=== PATIENT | female | born 1945 | race Caucasian/White ===

== ENCOUNTER → 2016-12-07 | Outpatient (CLI) | payer OTHER ==
[~2016-12-07] MED LIST: AMLO-114 PO; ASPCH81X PO; ATEN100T PO; ATEN25TA PO; FURO-85 PO; LIVALO PO; LORA-741 PO; LXPUNK PO; NRN300 PO; NTRGSL/4 UT; OXYC1TAB3 PO; PANT40TA PO; PLV75 PO; ROPI1TAB PO; ULT/50 PO
[2016-12-07 18:07] LABS: BASO % 0.5 %; BASO ABS # 0.03 K/uL (0-0.2); COMPLETE YES; EOS % 5.2 %; HEMATOCRIT 37.3 % (37-47); IG% 0.3 %; LYMPH % 21.6 %; LYMPH ABS # 1.32 K/uL (1.2-3.4); MEAN CELL VOLUME 86.3 fL (80-100); MEAN CORPUSCULAR HEMOGLOBIN 30.1 pg (25-34); MEAN CORPUSCULAR HGB CONC 34.9 g/dl (32-36); MEAN PLATELET VOLUME 11.1 fL (7.4-10.4); MONO % 9.8 %; NEUT % 62.6 %; PLATELET COUNT 170 K/uL (130-400); RED BLOOD COUNT 4.32 M/uL (4.2-5.4)
== END | disposition home or self-care (01) ==
LOC: C.LABMFLN 11:24
PROVIDERS: ATTEND Family Medicine
DX: D50.0 Iron deficiency anemia secondary to blood loss (chronic) (principal)

== ENCOUNTER 2017-01-05 07:44 | Emergency (ER) | payer OTHER ==
[~2017-01-05] VITALS: Ht 157.5 cm; Wt 77.0 kg
[~2017-01-05 07:44] MED LIST changes: -AMLO-114 PO; -ATEN25TA PO; -OXYC1TAB3 PO
[2017-01-05 07:49] VITALS: TEMP 36.9; Ht 157.5 cm; Wt 77.0 kg
[2017-01-05] MEDS ORDERED: ATEN25TA PO (08:03)
[2017-01-05] MEDS ORDERED: AMLO-114 PO (08:22)
[2017-01-05 09:01] LABS: PARTIAL THROMBOPLASTIN RATIO 1.1
--- NOTE | 2017-01-05 09:20 | DIAGNOSTIC IMAGING REPORT ---
Venous Doppler left leg LEFT VENOUS DOPP LOWER EXT UNILAT CLINICAL HISTORY: posterior knee pain pain TECHNIQUE: Venous Doppler COMPARISON STUDY: None FINDINGS: No evidence for deep venous thrombosis. Several small popliteal cyst measuring up to 2.5 cm IMPRESSION: 1. Study is negative for deep venous thrombosis. 2. Several small posterior popliteal cyst. Electronically signed by: Agustin Pleitez M.D. 01/05/2017 9:19 AM Dictated Date/Time: 01/05/2017 9:16 AM
--- NOTE | 2017-01-05 09:58 | EMERGENCY ROOM VISIT NOTE ---
History First contact with patient: 07:56 Chief Complaint: KNEEPAIN Stated Complaint: KNEE PAIN History of Present Illness The patient is a 71 year old female who presents to the Emergency Room with complaints of left knee pain for several months but got worse yesterday. The patient states that she felt something "pop" yesterday and then got severe pain in the back of her knee and on the medial aspect. The patient states she is able to ambulate but it is painful. The patient states that she has a history of multiple popliteal cysts in that knee. The patient is on Plavix since she had a quadruple bypass several months ago. The patient denies any calf pain or any chest pain or shortness of breath. Review of Systems 10 system review was performed and was negative unless stated otherwise history of present illness. Past Medical/Surgical History He had bypass, heart disease, hypertension, depression, anxiety, popliteal cyst , thyroid nodule, benign breast nodule, bowel resection Social History Smoking Status: Never Smoker Alcohol Use: occasionally Marital Status: Housing Status: lives with family Occupation Status: retired Current/Historical Medications Scheduled Amlodipine (Norvasc), 10 MG PO QAM Aspirin (Aspirin Chewable), 81 MG PO HS Atenolol (Tenormin), 25 MG PO QAM Clopidogrel Bisulfate (Clopidogrel), 1 TAB PO DAILY Escitalopram (Lexapro Unknown Dose), 20 MG PO HS Gabapentin (Gabapentin), 300 MG PO BID Lorazepam (Ativan), 1.5 TABLETS PO HS PRN Nitroglycerin (Nitrostat), 0.4 MG UT PRN Pantoprazole Sodium (Protonix), 40 MG PO QAM Ropinirole (Requip), 1 MG PO HS Tramadol Hcl (Ultram), 50 MG PO BID [Livalo], 2 MG PO HS Scheduled PRN Furosemide (Lasix), 1 TAB PO DAILY PRN for fluid Allergies Coded Allergies: Crab (Verified Allergy, Unknown, numbness of tongue, 01/05/17) Ranolazine (Verified Allergy, Unknown, DIAPORETIC WEAKNESS FAINTING, ) Isosorbide (Verified Adverse Reaction, Intermediate, Severe headache, ) SEVERE TRACEY Nitroglycerin (Verified Adverse Reaction, Mild, HEADACHE, 01/05/17) Rosuvastatin (Verified Adverse Reaction, Mild, MUSCLE PAIN, 01/05/17) MUSCLE PAIN Simvastatin (Verified Adverse Reaction, Mild, MUSCLE CRAMPING, 01/05/17) Physical Exam Vital Signs Date Time Temp Pulse Resp B/P Pulse Ox O2 Delivery O2 Flow Rate FiO2 01/05/17 09:19 55 16 138/74 95 Room Air 01/05/17 07:49 36.9 59 18 127/72 97 Room Air Physical Exam GENERAL: 71-year-old white female appears in no acute distress. MENTAL Status: Alert and oriented 3 NECK: Supple, no lymphadenopathy noted. No carotid bruits noted. LUNGS: Clear auscultation without wheezes rales or rhonchi. CARDIAC: Regular rate and rhythm without murmur. Pulses is full and equal throughout. LEFT KNEE: No gross bony deformity noted. No erythema or edema noted. The patient has tenderness palpation over the medial joint space and in the popliteal region. Full range of motion of the knee. No ligament instability noted. Medical Decision & Procedures ER Provider Diagnostic Interpretation: Venous Doppler left leg LEFT VENOUS DOPP LOWER EXT UNILAT CLINICAL HISTORY: posterior knee pain pain TECHNIQUE: Venous Doppler COMPARISON STUDY: None FINDINGS: No evidence for deep venous thrombosis. Several small popliteal cyst measuring up to 2.5 cm IMPRESSION: 1. Study is negative for deep venous thrombosis. 2. Several small posterior popliteal cyst. Electronically signed by: Agustin Pleitez M.D. 01/05/2017 9:19 AM Dictated Date/Time: 01/05/2017 9:16 AM Laboratory Results Test 01/05/17 08:36 Prothrombin Time 11.0 SECONDS (9.0-12.0) Prothromb Time International Ratio 1.0 (0.9-1.1) Activated Partial Thromboplast Time 27.3 SECONDS (21.0-31.0) Partial Thromboplastin Ratio 1.1 ED Course The patient was evaluated. The patient was offered pain medication but declined. Coags were ordered and were unremarkable. He did stop her was ordered and interpreted as above without any evidence of DVT but there were multiple popliteal cysts largest measuring 2.5 cm. The patient was informed of the findings. The patient was independently evaluated by Dr. Cantrell who agrees with treatment plan. The patient states she already has an appointment with [facility] next Monday but she states that the pain was increasing therefore she decided to come to the emergency room. The patient was informed that we normally do not do MRIs to the emergency room. We also do not do injections into the knee that she would have to see orthopedics. The patient verbalized understanding. I had the case investigator speak with [facility] and they moved up her appointment with to 845 on Monday at the [place] office. The patient was discharged home in stable condition. Medical Decision Differential diagnosis include DVT, superficial phlebitis, meniscal tear, ligament strain, popliteal cyst Impression Primary Impression: Knee pain Additional Impression: Popliteal cyst Departure Information Dispostion Home / Self-Care Condition GOOD Referrals Cony De La Torre M.D. (PCP) Carlos Fremean M.D. Forms HOME CARE DOCUMENTATION FORM, IMPORTANT VISIT INFORMATION Patient Instructions [employer] Additional Instructions Take OxyIR as needed for pain. Do not drive while taking the OxyIR. Recommend getting an [id number] knee brace that has felt processes can adjust the size for the left knee. Appointment with on Monday at 8:45 AM at the [place] office. Further evaluation and treatment per orthopedics. Problem Qualifiers
[2017-01-05] MEDS ORDERED: OXYC1TAB3 PO (09:59)
[2017-01-05 10:09] VITALS: BP 134/76; PULSE 52; O2SAT 98
--- NOTE | 2017-01-05 15:23 | EMERGENCY ROOM VISIT NOTE ---
ED Visit Note First contact with patient: 07:56 I have personally evaluated this patient examined her and reviewed the pertinent labs and data. I have discussed the case with Radha Pleitez, the physician finance assistant and agree with the plan. Please refer to the PA note This patient felt a pop in her left knee. she has posterior as well as medial pain. On exam ,she has no redness or warmth and fas full range of motion ultrasound shows no evidence of DVT. She is use knee support and pain medication. we have got her in with orthopedics and they will see her for treatment and evaluation. She should be careful getting up and down
== END 2017-01-05 10:10 | disposition home or self-care (01) ==
LOC: C.EDB 07:45
DX: M71.22 Synovial cyst of popliteal space [Baker], left knee (principal); I51.9 Heart disease, unspecified; M25.562 Pain in left knee; I10 Essential (primary) hypertension; Z79.82 Long term (current) use of aspirin

== ENCOUNTER → 2017-01-30 | Outpatient (CLI) | payer OTHER ==
[~2017-01-30] MED LIST changes: +AMLO-114 PO; -ATEN100T PO; +ATEN25TA PO; +OXYC1TAB3 PO
[2017-01-30 17:49] LABS: BASO % 0.5 %; BASO ABS # 0.04 K/uL (0-0.2); COMPLETE YES; EOS % 4.3 %; HEMATOCRIT 43.3 % (37-47); IG% 0.6 %; LYMPH % 27.4 %; LYMPH ABS # 2.21 K/uL (1.2-3.4); MEAN CELL VOLUME 84.6 fL (80-100); MEAN CORPUSCULAR HEMOGLOBIN 29.3 pg (25-34); MEAN CORPUSCULAR HGB CONC 34.6 g/dl (32-36); MEAN PLATELET VOLUME 10.7 fL (7.4-10.4); MONO % 9.4 %; NEUT % 57.8 %; PLATELET COUNT 247 K/uL (130-400); RED BLOOD COUNT 5.12 M/uL (4.2-5.4); WHITE BLOOD COUNT 8.06 K/uL (4.8-10.8)
[2017-01-30 18:02] LABS: BLOOD UREA NITROGEN 14 mg/dl (7-18); BUN/CREATININE RATIO 15.4 (10-20); CALCIUM 9.5 mg/dl (8.5-10.1); CARBON DIOXIDE 29 mmol/L (21-32); CHLORIDE 106 mmol/L (98-107); CREATININE 0.94 mg/dl (0.60-1.20); GLUCOSE 105 mg/dl (70-99); POTASSIUM 3.7 mmol/L (3.5-5.1); SODIUM 142 mmol/L (136-145)
[2017-01-30 18:13] LABS: PHOSPHORUS 3.8 mg/dl (2.5-4.9)
== END | disposition home or self-care (01) ==
LOC: C.LABMFLN 10:11
PROVIDERS: ATTEND Family Medicine
DX: F41.9 Anxiety disorder, unspecified (principal); F32.9 Major depressive disorder, single episode, unspecified

== ENCOUNTER → 2017-04-17 | Outpatient (CLI) | payer OTHER ==
--- NOTE | 2017-04-17 14:55 | MAMMOGRAPHY REPORT ---
UNILATERAL RIGHT DIGITAL DIAGNOSTIC MAMMOGRAM TOMOSYNTHESIS WITH CAD AND TARGETED RIGHT ULTRASOUND: CLINICAL HISTORY: 72-year-old woman with a history of 2 prior benign ultrasound guided core biopsies in the 12:00 right breast. She presents for follow-up of a probable, located cyst with thin internal septations also seen on prior diagnostic ultrasound. Both biopsies yielded benign pathology results . Patient also has a history of recent open heart surgery 6 months ago. TECHNIQUE: Right breast tomosynthesis in addition to standard 2D mammography was performed. Current jhony raymond was also evaluated with a Computer Aided Detection (CAD) system. COMPARISON: Comparison is made to exams dated: 10/11/2016 mammogram, 10/04/2016 ultrasound, 10/04/2016 mammogram, 09/29/2016 mammogram - [facility], 09/17/2014 mammogram, and 04/04/2013 ma mmogram - [facility]. BREAST COMPOSITION: There are scattered areas of fibroglandular density in the right breast. FINDINGS: There are 2 stable metallic biopsy markers in the 12:00 to 12:30 anterior right breast, den oting the site of prior benign ultrasound-guided core biopsy. There are a few benign-appearing punct ate microcalcifications in the right breast. No new suspicious mass, architectural distortion or clu ster of microcalcifications is seen. Targeted ultrasound was performed in the 12:00 periareolar right breast to reevaluate the probable co mplicated cyst as seen on prior diagnostic ultrasound. In the 12:00 periareolar right breast, there is a lobulated anechoic cystic appearing mass with thin internal nonvascular septations measuring 3.9 x 3.2 x 3.8 mm. This has decreased in size comparing to the prior diagnostic ultrasound at which ti me it measured 0.2 x 5.8 x 4.9 mm. Given the interval decrease this confirms benignity and no furthe r close follow-up is needed at this time. IMPRESSION: ACR BI-RADS CATEGORY 2: BENIGN, TARGETED ULTRASOUND ACR BI-RADS CATEGORY 2: BENIGN A probable, located cyst in the 12:00 periareolar right breast which was not previously biopsied has decreased in size, confirming benignity. There is no mammographic or targeted sonographic evidence o f malignancy in the right breast. Return to annual mammogram screening schedule is recommended (2016). The patient has been verbally notified of the results. Approximately 10% of breast cancers are not detected with mammography. A negative mammographic report should not delay biopsy if a clinically suggestive mass is present. Kasie Hayward M.D. ay/:04/17/2017 10:48:28 Factory Hand: Rafaela MULLER)(Tim), [facility] letter sent: Normal 1/2 BI-RADS Code: ACR BI-RADS Category 2: Benign Ultrasound BI-RADS: ACR BI-RADS Category 2: Benign
== END | disposition home or self-care (01) ==
LOC: C.MAMM 09:58
PROVIDERS: ATTEND Family Medicine
DX: Z12.31 Encounter for screening mammogram for malignant neoplasm of breast (principal); N64.89 Other specified disorders of breast

== ENCOUNTER → 2017-05-09 | Outpatient (CLI) | payer OTHER | END | disposition home or self-care (01) | LOC: C.LABMFLN 11:49 | PROVIDERS: ATTEND Family Medicine | DX: M79.606 Pain in leg, unspecified (principal) ==

== ENCOUNTER → 2017-05-10 | Outpatient (CLI) | payer OTHER ==
--- NOTE | 2017-05-10 11:29 | DIAGNOSTIC IMAGING REPORT ---
BILATERAL LOWER EXTREMITY VENOUS DOPPLER HISTORY: Pain. Edema. ELEVATED D DIMER, PAIN IN LOWER EXTREMITY, R/O DVT COMPARISON STUDY: None. FINDINGS: There is normal compressibility, flow, and augmentation within the bilateral lower extremity deep venous systems. Bilateral popliteal cysts are present IMPRESSION: No DVT within the right or left lower extremity. Bilateral popliteal cysts measuring approximately 4 cm respectively Electronically signed by: Agustin Pleitez M.D. 05/10/2017 11:27 AM Dictated Date/Time: 05/10/2017 11:26 AM
== END | disposition home or self-care (01) ==
LOC: C.ULTR 10:47
PROVIDERS: ATTEND Family Medicine
DX: M79.606 Pain in leg, unspecified (principal); R79.89 Other specified abnormal findings of blood chemistry; M71.21 Synovial cyst of popliteal space [Baker], right knee; M71.22 Synovial cyst of popliteal space [Baker], left knee

== ENCOUNTER → 2018-02-06 | Outpatient (CLI) | payer OTHER ==
[~2018-02-06] MED LIST changes: -OXYC1TAB3 PO
--- NOTE | 2018-02-07 09:48 | PULMONARY FUNCTION TEST ---
CLINICAL DATA: A 72-year-old female with a height of 61 inches and weight of [address] De La Torre for evaluation of COPD. Spirometry pre- and post-bronchodilator, lung volumes, and DLCO were performed. FINDINGS: Pre-bronchodilator spirometry is within normal limits. FVC was 86% of predicted. FEV1 was 85% of predicted. [id number] was 82% of predicted. There was no significant change after inhaled bronchodilator. FEV1 improved 3%. [id number] are improved 9%. Lung volumes are within normal limits with the exception of a reduction in expiratory reserve volume secondary to the patient's weight. DLCO was mildly reduced at 68% of predicted. IMPRESSION: 1. Normal baseline spirometry with no improvement after inhaled bronchodilator. 2. Reduction in expiratory reserve volume due to obesity. 3. Mild reduction in DLCO to 68% of predicted, which could be secondary to mild chronic obstructive pulmonary disease. MTDD
== END | disposition home or self-care (01) ==
LOC: C.RC 11:28
PROVIDERS: ATTEND Family Medicine
DX: J43.9 Emphysema, unspecified (principal)

== ENCOUNTER → 2018-02-13 | Outpatient (CLI) | payer OTHER ==
[2018-02-13 14:36] LABS: BASO % 0.6 %; BASO ABS # 0.03 K/uL (0-0.2); EOS % 5.4 %; EOS ABS # 0.26 K/uL (0-0.5); HEMATOCRIT 37.4 % (37-47); HEMOGLOBIN 12.6 g/dL (12.0-16.0); IG# 0.01 K/uL (0.00-0.02); LYMPH % 20.2 %; LYMPH ABS # 0.98 K/uL (1.2-3.4); MEAN CELL VOLUME 88.6 fL (80-100); MEAN CORPUSCULAR HEMOGLOBIN 29.9 pg (25-34); MEAN CORPUSCULAR HGB CONC 33.7 g/dl (32-36); MEAN PLATELET VOLUME 11.5 fL (7.4-10.4); MONO % 9.3 %; MONO ABS # 0.45 K/uL (0.11-0.59); NEUT % 64.3 %; NEUT ABS # 3.12 K/uL (1.4-6.5); PLATELET COUNT 173 K/uL (130-400); RED CELL DISTRIBUTION WIDTH SD 45.2 fL (36.4-46.3); WHITE BLOOD COUNT 4.85 K/uL (4.8-10.8)
[2018-02-13 15:07] LABS: ALBUMIN 3.9 gm/dl (3.4-5.0); ALT/SGPT 20 U/L (12-78); AST/SGOT 16 U/L (15-37); BLOOD UREA NITROGEN 11 mg/dl (7-18); CALCIUM 8.9 mg/dl (8.5-10.1); CARBON DIOXIDE 26 mmol/L (21-32); CREATININE 0.78 mg/dl (0.60-1.20); GLUCOSE 102 mg/dl (70-99); SODIUM 140 mmol/L (136-145)
[2018-02-13 15:20] LABS: ALKALINE PHOSPHATASE 91 U/L (45-117); TOTAL PROTEIN 6.8 gm/dl (6.4-8.2)
== END | disposition home or self-care (01) ==
LOC: C.LAB1850 12:06
PROVIDERS: ATTEND Internal Medicine Pulmonary Disease
DX: J44.1 Chronic obstructive pulmonary disease with (acute) exacerbation (principal); R05 Cough

== ENCOUNTER → 2018-02-26 | Outpatient (CLI) | payer OTHER ==
--- NOTE | 2018-02-26 13:16 | DIAGNOSTIC IMAGING REPORT ---
PET/CT SKULL-THIGH CLINICAL HISTORY: 72 years-old Female presenting with PULMONARY NODULE. TECHNIQUE: PET/CT was performed from the skull base through the proximal thighs following the intravenous administration of 10.127 mCi of F18-FDG. Blood glucose level 102 mg/dL. The injection was performed at 10:15 AM and imaging began at 11:[address] was performed for attenuation correction purposes and anatomic localization. COMPARISON: None. CT DOSE (mGy.cm): The estimated cumulative dose is 1156.30. FINDINGS: Head and neck: No FDG-avid mass in the visualized portion of the head or neck. No FDG avid or enlarged lymph nodes in the neck. Chest: Normal thyroid and thoracic inlet. No FDG avid axillary, supraclavicular, or mediastinal lymphadenopathy. Evaluation of the minesh on anatomic imaging limited without intravenous contrast. Atherosclerosis of the aorta. Multichamber enlargement of the heart. Coronary artery calcification. Coronary stents may be present. Median sternotomy wires noted. No pericardial or pleural effusion. Minimal dependent changes likely atelectasis. Mosaic attenuation suggest small airways disease. No FDG avid focal nodule or infiltrate. Airways patent. Abdomen and pelvis: Postsurgical changes of sigmoidectomy with a colocolonic anastomosis at the upper rectum. Surgical clips noted in the pelvis. Normal physiologic distribution of radiotracer in the gastrointestinal and genitourinary tracts. No FDG avid lymphadenopathy or mass lesion. Musculoskeletal: No FDG-avid or destructive osseous lesion. IMPRESSION: 1. No FDG avid pulmonary nodule. No PET/CT evidence of malignancy. 2. Cardiomegaly. 3. Postsurgical changes of sigmoidectomy with colocolonic anastomosis. Electronically signed by: Carlos Hernandez M.D. 02/26/2018 1:15 PM Dictated Date/Time: 02/26/2018 1:04 PM
== END | disposition home or self-care (01) ==
LOC: C.PET 09:23
PROVIDERS: ATTEND Internal Medicine Pulmonary Disease
DX: J44.1 Chronic obstructive pulmonary disease with (acute) exacerbation (principal); R91.1 Solitary pulmonary nodule; I51.7 Cardiomegaly

== ENCOUNTER 2023-04-11 12:34 | Inpatient (IN) ==
[2023-04-11] MEDS ORDERED: SODIUM CHLORIDE 0.9% 1000ML 1,000 ML IV ONE (12:55)
--- NOTE | 2023-04-11 13:21 | XRay Report ---
XR chest 1V portable CLINICAL HISTORY: Syncope. COMPARISON STUDY: Chest radiograph January 06, 2020. FINDINGS: Cardiomegaly is unchanged. There is no pneumothorax or pleural effusion. There are median s ternotomy wires and mediastinal surgical clips. No consolidation is present. There is no evidence for pulmonary edema. IMPRESSION: No acute cardiopulmonary findings. Cardiomegaly. ACT 112: Negative or not required by law. Electronically signed by: Zechariah Ngo M.D. 04/11/2023 1:19 PM
[2023-04-11 13:23] LABS: Basophils # (auto) 0.04 K/uL (0-0.2); Basophils % (auto) 0.9 %; Eosinophils # (auto) 0.24 K/uL (0-0.50); Eosinophils % (auto) 5.2 %; Hematocrit (blood only) 43.3 % (37.0-47.0); Hemoglobin 14.8 g/dl (12.0-16.0); Immature Granulocytes # (auto) 0.01 K/uL (0.01-0.20); Immature Granulocytes % (auto) 0.2 %; Lymphocytes # (auto) 1.06 K/uL (1.2-3.4); Lymphocytes % (auto) 22.8 %; Mean Corpuscular Hemoglobin 29.7 pg (25.0-34.0); Mean Corpuscular Hgb Conc 34.2 g/dL (32.0-36.0); Mean Corpuscular Volume 86.9 fL (80.0-100.0); Mean Platelet Volume 11.8 fL (9.4-12.4); Monocytes # (auto) 0.46 K/uL (0.11-0.59); Monocytes % (auto) 9.9 %; Neutrophils # (auto) 2.84 K/uL (1.40-6.50); Platelet Count 174 K/uL (130-400); RDW Coefficient of Variation 13.3 % (11.5-14.5); RDW Standard Deviation 42.5 fL (36.4-46.3); Red Blood Count 4.98 M/uL (4.20-5.40); White Blood Count 4.65 K/ul (4.8-10.8)
[2023-04-11 13:41] LABS: Albumin Globulin Ratio 1.5 (0.9-2); Albumin Level 4.3 gm/dl (3.4-5.0); BUN Creatinine Ratio 16.3 (10-20); Bilirubin,Total 0.6 mg/dl (0.2-1.0); Calcium 9.8 mg/dl (8.6-10.3); Est GFR (Non-African American) 71.6 ml/min; Globulin 2.8 gm/dl (2.5-4.0); Magnesium 1.8 mg/dl (1.7-2.4); Potassium 4.1 mmol/L (3.5-5.1); Total Protein 7.1 gm/dl (6.0-8.3)
[2023-04-11] MEDS ORDERED: MAGNESIUM SULFATE / D5W 1 GM/100 ML BAG IV STA (13:45)
[2023-04-11 13:46] LABS: Troponin I High Sensitivity 23.8 pg/ml (0-14)
[2023-04-11 15:13] LABS: Lyme Ab IgG w/WB Rflx Negative (Negative)
[2023-04-11 15:14] LABS: Lyme Ab IgM w/WB Rflx Negative (Negative)
--- NOTE | 2023-04-11 15:58 | Emergency Department Note ---
Impression & Plan Near syncope, Complete heart block, transient, Sinus node dysfunction, Hypertension, Sinus bradycardia ED Provider Note NAME: LOLIS CARTER AGE: 78 SEX: F ARRIVES VIA: Walk-In INFORMANT: Patient ED PROVIDER(S): Alexandre Goodrich MD CHIEF COMPLAINT: Near fainting PLAN: Disposition: Admit MEDICAL DECISION MAKING: The patient is a pleasant 78-year-old woman with a complicated past medical history of CAD with her report of 13 stents, history of CABG, atrial fi brillation status post cardioversion and then ablation this past fall on who presents to the emergency department via walk-in accompanied by her for evaluation of symptoms of intermittent palpitations and episodes of dizziness where she feels she is about to faint which lasts seconds and then resolves completely over the past several weeks where she was seen at [facility] emergency department on 03/[address] scan of her head and unremarkable lab work and was diagnosed with suspected meclizine. She reports she has been doing well for the most part until today when she had repeat episodes. She does report having intermittent palpitations which she reports is not atypical for her over the past couple weeks but she did follow-up with her manager agency [employer] and had a heart monitor placed which she has since mailed back yesterday and does not know of the results yet. She denies chest pain or shortness of breath with her episodes. Otherwise she denies any cough, congestion, GI or symptoms. She did take her Atenolol this morning. On arrival the patient is anxious appearing but in no acute distress, afebrile with heart rate in the 50s and sinus bradycardia blood pressure 180s/70s and vital signs otherwise stable. Of note when the patient's IV and labs were being obtained nursing did note that the patient had a another "episode" where her heart rate had gone down to the 30s. The patient's telemetry was obtained and it did appear that the patient had transient complete heart block per my review lasting approximately 3 seconds and then returning to a sinus bradycardia. The patient reported feeling "a difference in her chest" in that moment but denied pain. She denied sensation of near fainting as she has had in her recent other episodes. EKG otherwise is without overt acute ischemia. Chest x-ray negative for acute cardiopulmonary process. WBC 4.6k similar to prior, nonspecific. H/H and platelets within normal limits. Chemistry without metabolic acidosis. Magnesium 1.8, low normal. Otherwise, electrolytes without significant abnormality. LFTs unremarkable. High- sensitivity troponin 23.8, nonspecific. Lipase is normal. TSH within normal limits. Lyme screen was negative. COVID-19 RNA, AQUILINO test was negative. Given the patient's transient complete heart block which is suspected to correlate with the patient's symptoms of near syncope she was referred to the hospitalist service for evaluation. Case was discussed with ROSETTA Kaplan hospitalist, who will evaluate the patient for admission. Case was also discussed with Dr. Roxanne HARDIN cardiology on-call. Subsequently, during the patient's observation the patient was noted to have "another episode" but this time with more significant symptoms where she felt near syncope onset for approximately 6 seconds which correlates with review of her telemetry which demonstrates a 5-6-second pause. Admitting team and cardiology updated. Pacer pads were placed on the patient out of caution though the patient remained hemodynamically stable subsequently. Triage Nursing notes reviewed and agree them. Prior/outside medical records reviewed Vital Signs: reviewed Differential diagnosis: Vasovagal event, dehydration, infection, hypoglycemia, electrolyte abnormalities, cardiac sources, intracerebral event, pulmonary embolism, seizure, toxicologic, neurologic, as well as other pathologies. ER treatment provided: See below. Diagnostics interpreted by me: ECG 1254: Sinus bradycardia with sinus arrhythmia, first-degree AV block, 58 bpm, no ectopy, no overt ST elevation or depression, QTc 408, QRS 100, MN 212. ECG 1644: Sinus bradycardia with sinus arrhythmia, first-degree AV block, 58 bpm, no ectopy, no overt ST elevation or depression, QTc 424, QRS 94, MN 212. Cardiac Monitoring: An order for continuous cardiac monitoring was placed and demonstrated sinus bradycardia with first-degree AV block with transient episode of complete heart block lasting 2-3 seconds per my review and an approximate 5-6-second sinus pause. Laboratory studies: See below Imaging studies: See below Consultation(s): ROSETTA Kaplan hospitalist. LASHAWN Ellis Cardiology on-call. HPI: The patient is a pleasant 78-year-old woman with a complicated past medical history of CAD with her report of 13 stents, history of CABG, atrial fibrillation status post cardioversion and then ablation this past fall on Ray who presents to the emergency department via walk-in accompanied by her for evaluation of symptoms of intermittent palpitations and episodes of dizziness where she feels she is about to faint which lasts seconds and then resolves completely over the past several weeks where she was seen at [facility] emergency department on 03/[address] scan of her head and unremarkable lab work and was diagnosed with suspected meclizine. She reports she has been doing well for the most part until today when she had repeat episodes. She does report having intermittent palpitations which she reports is not atypical for her over the past couple weeks but she did follow-up with her manager agency [employer] and had a heart monitor placed which she has since mailed back yesterday and does not know of the results yet. She denies chest pain or shortness of breath with her episodes. Otherwise she denies any cough, congestion, GI or symptoms. She did take her Atenolol this morning. ROS: See above HPI for pertinent positives & negatives. A total of 10 systems reviewed and were otherwise negative. VITALS:See Below PHYSICAL EXAMINATION: GENERAL: Awake, alert, anxious but well-appearing, in no distress HENT: Normocephalic, atraumatic. Oropharynx with dry mucous membranes and otherwise unremarkable. EYES: Normal conjunctiva. Sclera non-icteric. EOMI. No nystamgus. PEARRL. NECK: Supple. No nuchal rigidity. FROM. No JVD. RESPIRATORY: Clear to auscultation. CARDIAC: Bradycardic rate, normal rhythm. Extremities warm and well perfused. Pulses equal. ABDOMEN: Soft, non-distended. No tenderness to palpation. No rebound or guarding. No masses. RECTAL: Deferred. MUSCULOSKELETAL: Chest examination reveals no tenderness. The back is symmetrical on inspection without obvious abnormality. There is no CVA tenderness to palpation. No joint edema. LOWER EXTREMITIES: Calves are equal size bilaterally and non-tender. No edema. No discoloration. NEURO: Normal sensorium. No sensory or motor deficits noted. SKIN: No rash or jaundice noted. ED COURSE: Critical Care: I have personally spent greater than 45 minutes of critical care time in the direct management of this patient. This includes bedside care, interpretation of diagnostic studies, and testing, discussion with consultants, patient, and family members, and other required patient management activities. This 45 minutes is in excess of all separately billable procedures. Alexandre Goodrich MD Past Med/Surg History Medical History Anxiety Chronic obstructive pulmonary disease Coronary artery disease multiple cardiac stents (total of 13/most recent 2014), CABG x4 (2017) Depression Diverticular disease GERD (gastroesophageal reflux disease) Hemoptysis (10/04/22) Hyperlipidemia Hypertension Hypothyroidism Leg cramps Low vitamin B12 level Osteoarthritis of multiple joints Paroxysmal atrial fibrillation Peripheral neuropathy Restless legs syndrome Sinus bradycardia Urinary incontinence Surgical History H/O colonoscopy 07/17/2013 repeat 5yrs H/O foot surgery bunionectomy on right foot/rinaldi's neuroma removal bilaterally H/O partial thyroidectomy History of bowel resection partial History of partial thyroidectomy Hx of CABG 4 VESSEL (10/2016) Hx of cardiac catheterization Hx of tonsillectomy Nausea and vomiting after administration of anesthetic agent S/P ablation of atrial fibrillation 09/2022 Dr Braxton Hwang S/P CABG (coronary artery bypass graft) S/P carpal tunnel release S/P knee replacement Right TKA: 10/10/18 at [facility] Family History Mother Osteoporosis Heart disease Hypertension Other No family history of adverse response to anesthesia Denies family history of Ovarian cancer Prostate cancer Myocardial infarction Breast cancer Colorectal cancer Social History Smoking Status: Never smoker Second Hand Exposure: Yes (Mother smoked. ); Do You Dip or Chew Tobacco: No; Hx Alcohol Use: Yes Alcohol type: beer and wine Alcohol Intake Frequency: 2-4 x/Month Hx Substance Use: No Preferred Language: Polish Communication Ability: Effective Visual Impairment: Limited Hearing Ability: Normal Park Aide Required: No Beliefs That Will Affect Care: None marital status: Current Living Situation: Spouse current occupational status: retired How many Children do You have: 2 Other Information That Helps Us Care for You: No Feels Safe at Home: Yes Safety Concerns: Feels Safe At This Time Childhood Exposure to Second-Hand Smoke: Yes Diet: regular caffeine: Yes (coffee) during the past year weight has: remained stable Dental Care, Regularly: Yes Physical Activity Frequency: 3-4 Times per Week Physical Activity Frequency Comment: Works in [employer] Seatbelt Use: always Sunscreen Use: No Do you think of yourself as: straight/heterosexual Gender Identity: Female Assistive Devices: Denture - Upper and Glasses Allergies Allergies Allergy/AdvReac Type Severity Reaction Status Date / Time crab Allergy Intermediate numbness Verified 04/11/23 16:51 of tongue metoprolol Allergy Unknown swelling Verified 04/11/23 17:58 sulfamethoxazole Allergy Unknown yeast Verified 04/11/23 16:51 [From Bactrim] infection trimethoprim [From Bactrim] Allergy Unknown yeast Verified 04/11/23 17:58 infection and Nausea and Vomitting shellfish derived Allergy numbness Verified 04/11/23 17:58 of tongue/edema of face/lips/tongue isosorbide AdvReac Intermediate Severe Verified 04/11/23 16:51 headache nitroglycerin AdvReac Mild HEADACHE Verified 04/11/23 16:51 rosuvastatin AdvReac Mild MUSCLE PAIN Verified 04/11/23 16:51 simvastatin AdvReac Mild MUSCLE Verified 04/11/23 16:51 CRAMPING pitavastatin [From Livalo] AdvReac Unknown Unknown Verified 04/11/23 16:51 prednisone AdvReac Unknown Tachycardia Verified 04/11/23 17:58 Home Meds Home Medications Medication Instructions Recorded Confirmed apixaban 5 mg tablet (Eliquis) 5 mg PO BID 10/10/22 04/11/23 escitalopram oxalate 10 mg tablet 5 mg PO QAM 04/05/23 04/11/23 (Lexapro) lorazepam 1 mg tablet 1 mg PO HS anxiety 04/05/23 04/11/23 cyanocobalamin (vitamin B-12) 1,000 mcg PO QAM 04/11/23 04/11/23 1,000 mcg tablet fluticasone 250 mcg-salmeterol 50 1 inh inhalation BID PRN Shortness 04/11/23 04/11/23 mcg/dose blistr powdr for Of Breath inhalation (Advair Diskus) meclizine 25 mg tablet 25 mg PO Q8 04/11/23 04/11/23 pantoprazole 40 mg tablet,delayed 40 mg PO QAM heartburn 04/11/23 04/11/23 release sacubitril 49 mg-valsartan 51 mg 1 tab PO BID 04/11/23 04/11/23 tablet (Entresto) Previous Rx's Medication Instructions Recorded albuterol sulfate 90 mcg/actuation 2 inh inhalation .COMPLEX PRN 01/17/20 aerosol inhaler cough/wheeze #18 grams nitroglycerin 0.4 mg sublingual 0.4 mg sublingual Q5M PRN Chest 07/18/21 tablet Pain #25 tabs amlodipine 10 mg tablet 10 mg PO PM #90 tabs 11/30/22 nystatin 100,000 unit/gram topical 1 applic topical BID #60 grams 11/30/22 powder nystatin 100,000 unit/gram topical 1 applic topical BID #60 grams 12/02/22 cream atenolol 100 mg tablet 50 mg PO QAM #45 tabs 12/08/22 Results & Data (ED) Vital Signs Vital Signs - 24 hr 04/11/23 12:41 04/11/23 13:02 04/11/23 13:18 Temperature 36.6 C Temperature Source Temporal Artery Scan Pulse Rate 54 L 58 L 31 L Pulse Rate from SpO2 Sensor Respiratory Rate 16 Respiratory Effort / Characteristics Non-Labored Spontaneous Respiratory Depth Normal Respiratory Pattern Regular Blood Pressure 180/75 H Blood Pressure Mean 110 Blood Pressure Position Sitting Pulse Oximetry 98 Oxygen Delivery Method Room Air Sepsis Recent Fever Within 48 Hours No Sepsis New/Unexplained Change in Mental Status N/A Sepsis Action Taken by Nursing No Action Required 04/11/23 14:30 04/11/23 13:01 04/11/23 13:30 Temperature Temperature Source Pulse Rate 55 L 54 L Pulse Rate from SpO2 Sensor 55 L 54 L Respiratory Rate 18 15 Respiratory Effort / Characteristics Respiratory Depth Respiratory Pattern Blood Pressure 161/82 H 181/84 H Blood Pressure Mean 108 116 Blood Pressure Position Pulse Oximetry 98 96 95 Oxygen Delivery Method Room Air Room Air Room Air Sepsis Recent Fever Within 48 Hours Sepsis New/Unexplained Change in Mental Status Sepsis Action Taken by Nursing 04/11/23 14:00 04/11/23 16:16 04/11/23 15:00 Temperature Temperature Source Pulse Rate 52 L 60 Pulse Rate from SpO2 Sensor 52 L Respiratory Rate 21 Respiratory Effort / Characteristics Respiratory Depth Respiratory Pattern Blood Pressure 163/104 H 138/88 Blood Pressure Mean 123 99 Blood Pressure Position Pulse Oximetry 95 Oxygen Delivery Method Room Air Sepsis Recent Fever Within 48 Hours Sepsis New/Unexplained Change in Mental Status Sepsis Action Taken by Nursing 04/11/23 15:00 04/11/23 15:31 04/11/23 15:31 Temperature Temperature Source Pulse Rate 51 L 50 L Pulse Rate from SpO2 Sensor 53 L 50 L Respiratory Rate 18 25 H Respiratory Effort / Characteristics Respiratory Depth Respiratory Pattern Blood Pressure 153/68 H Blood Pressure Mean 79 Blood Pressure Position Pulse Oximetry 96 96 Oxygen Delivery Method Sepsis Recent Fever Within 48 Hours Sepsis New/Unexplained Change in Mental Status Sepsis Action Taken by Nursing 04/11/23 16:00 04/11/23 16:00 04/11/23 16:30 Temperature Temperature Source Pulse Rate 52 L Pulse Rate from SpO2 Sensor 53 L Respiratory Rate 25 H Respiratory Effort / Characteristics Respiratory Depth Respiratory Pattern Blood Pressure 109/76 183/80 H Blood Pressure Mean 89 151 Blood Pressure Position Pulse Oximetry 98 Oxygen Delivery Method Sepsis Recent Fever Within 48 Hours Sepsis New/Unexplained Change in Mental Status Sepsis Action Taken by Nursing 04/11/23 16:30 04/11/23 17:01 04/11/23 17:01 Temperature Temperature Source Pulse Rate 59 L 57 L Pulse Rate from SpO2 Sensor 60 58 L Respiratory Rate 25 H 16 Respiratory Effort / Characteristics Respiratory Depth Respiratory Pattern Blood Pressure 185/90 H Blood Pressure Mean 117 Blood Pressure Position Pulse Oximetry 98 99 Oxygen Delivery Method Sepsis Recent Fever Within 48 Hours Sepsis New/Unexplained Change in Mental Status Sepsis Action Taken by Nursing Laboratory Data Attestation: I reviewed the patient's lab results. 04/11/23 13:06 04/11/23 13:06 Lab Results 04/11/23 04/11/23 04/11/23 Range/Units 13:06 13:06 13:06 WBC 4.65 L (4.8-10.8) K/ul RBC 4.98 (4.20-5.40) M/uL Hgb 14.8 (12.0-16.0) g/dl Hct 43.3 (37.0-47.0) % MCV 86.9 (80.0-100.0) fL MCH 29.7 (25.0-34.0) pg MCHC 34.2 (32.0-36.0) g/dL RDW Std Deviation 42.5 (36.4-46.3) fL RDW Coeff of Kp 13.3 (11.5-14.5) % Plt Count 174 (130-400) K/uL MPV 11.8 (9.4-12.4) fL Immature Gran % (Auto) 0.2 % Neut % (Auto) 61.0 % Lymph % (Auto) 22.8 % Maries % (Auto) 9.9 % Eos % (Auto) 5.2 % Baso % (Auto) 0.9 % Neut # (Auto) 2.84 (1.40-6.50) K/uL Lymph # (Auto) 1.06 L (1.2-3.4) K/uL Maries # (Auto) 0.46 (0.11-0.59) K/uL Eos # (Auto) 0.24 (0-0.50) K/uL Baso # (Auto) 0.04 (0-0.2) K/uL Immature Gran # (Auto) 0.01 (0.01-0.20) K/uL Sodium 139 (136-145) mmol/L Potassium 4.1 (3.5-5.1) mmol/L Chloride 107 (98-107) mmol/L Carbon Dioxide 28 (21-32) mmol/L Anion Gap 4 (3-11) BUN 13 (6-23) mg/dl Creatinine 0.80 (0.6-1.2) mg/dl Est Cr Clr Drug Dosing 59.0 ml/min Est GFR ( Amer) 83.0 ml/min Est GFR (Non-Af Amer) 71.6 ml/min BUN/Creatinine Ratio 16.3 (10-20) Glucose 108 H (70-99(Fasting)) mg/dl Calcium 9.8 (8.6-10.3) mg/dl Phosphorus 3.0 (2.5-4.9) mg/dl Magnesium 1.8 (1.7-2.4) mg/dl Total Bilirubin 0.6 (0.2-1.0) mg/dl AST 18 (13-39) U/L ALT 13 (7-52) U/L Alkaline Phosphatase 93 (34-104) U/L Troponin I High Sens 23.8 H (0-14) pg/ml Total Protein 7.1 (6.0-8.3) gm/dl Albumin 4.3 (3.4-5.0) gm/dl Globulin 2.8 (2.5-4.0) gm/dl Albumin/Globulin Ratio 1.5 (0.9-2) Lipase 19 (11-82) U/L TSH 2.227 (0.300-4.500) uIu/ml Lyme Disease IgG Ab (Negative) Lyme Disease IgM Ab (Negative) SARS-CoV-2, RNA, NAAT (NEGATIVE) 04/11/23 04/11/23 04/11/23 Range/Units 13:06 16:01 17:20 WBC (4.8-10.8) K/ul RBC (4.20-5.40) M/uL Hgb (12.0-16.0) g/dl Hct (37.0-47.0) % MCV (80.0-100.0) fL MCH (25.0-34.0) pg MCHC (32.0-36.0) g/dL RDW Std Deviation (36.4-46.3) fL RDW Coeff of Kp (11.5-14.5) % Plt Count (130-400) K/uL MPV (9.4-12.4) fL Immature Gran % (Auto) % Neut % (Auto) % Lymph % (Auto) % Maries % (Auto) % Eos % (Auto) % Baso % (Auto) % Neut # (Auto) (1.40-6.50) K/uL Lymph # (Auto) (1.2-3.4) K/uL Maries # (Auto) (0.11-0.59) K/uL Eos # (Auto) (0-0.50) K/uL Baso # (Auto) (0-0.2) K/uL Immature Gran # (Auto) (0.01-0.20) K/uL Sodium (136-145) mmol/L Potassium (3.5-5.1) mmol/L Chloride (98-107) mmol/L Carbon Dioxide (21-32) mmol/L Anion Gap (3-11) BUN (6-23) mg/dl Creatinine (0.6-1.2) mg/dl Est Cr Clr Drug Dosing ml/min Est GFR ( Amer) ml/min Est GFR (Non-Af Amer) ml/min BUN/Creatinine Ratio (10-20) Glucose (70-99(Fasting)) mg/dl Calcium (8.6-10.3) mg/dl Phosphorus (2.5-4.9) mg/dl Magnesium (1.7-2.4) mg/dl Total Bilirubin (0.2-1.0) mg/dl AST (13-39) U/L ALT (7-52) U/L Alkaline Phosphatase (34-104) U/L Troponin I High Sens 23.4 H (0-14) pg/ml Total Protein (6.0-8.3) gm/dl Albumin (3.4-5.0) gm/dl Globulin (2.5-4.0) gm/dl Albumin/Globulin Ratio (0.9-2) Lipase (11-82) U/L TSH (0.300-4.500) uIu/ml Lyme Disease IgG Ab Negative (Negative) Lyme Disease IgM Ab Negative (Negative) SARS-CoV-2, RNA, NAAT NEGATIVE (NEGATIVE) Administered Medications Acetaminophen (Acetaminophen 325 Mg Tab) 650 mg PO Q4H PRN PRN Reason: Pain or Fever Stop: 05/11/23 19:49 Last Admin: 04/11/23 20:08 Dose: 650 mg Documented By: TPB Amlodipine Besylate (Amlodipine Besylate 5 Mg Tab) 10 mg PO PM MARGAUX Stop: 05/11/23 20:59 Last Admin: 04/11/23 20:29 Dose: 10 mg Documented By: TPB Potassium Chloride/Sodium Chloride (Normal Saline W/20 Meq Kcl) 20 meq in 1,000 mls @ 120 mls/hr IV .Q8H20M MARGAUX Stop: 05/11/23 18:41 Last Admin: 04/11/23 20:32 Dose: 120 mls/hr Documented By: TPB Lorazepam (Lorazepam 0.5 Mg Tab) 0.5 mg PO HS MARGAUX Stop: 05/11/23 20:59 Last Admin: 04/11/23 20:28 Dose: 0.5 mg Documented By: TPB Sacubitril/Valsartan (Valsartan/Sacubitril 51/49 Mg Tab) 1 tab PO BID MARGAUX Stop: 05/11/23 20:59 Last Admin: 04/11/23 20:29 Dose: 1 tab Documented By: TPB Discontinued Medications Sodium Chloride (Nss 1000ml) 1,000 mls @ 999 mls/hr IV .Q1H1M ONE Stop: 04/11/23 13:55 Last Infusion: 04/11/23 14:52 Dose: 0 mls/hr Documented By: Admin: 04/11/23 13:06 Dose: 999 mls/hr Documented By: BETZY Magnesium Sulfate/Dextrose (Magnesium Sulfate / D5w) 1 gm in 100 mls @ 100 mls/hr IV NOW STA Stop: 04/11/23 14:44 Last Infusion: 04/11/23 17:01 Dose: 0 mls/hr Documented By: Admin: 04/11/23 14:36 Dose: 100 mls/hr Documented By: ROSHNI Imaging Data Radiologist's Impression: Chest X-Ray 04/11/23 12:55 XR chest 1V portable CLINICAL HISTORY: Syncope. COMPARISON STUDY: Chest radiograph January 06, 2020. FINDINGS: Cardiomegaly is unchanged. There is no pneumothorax or pleural effusion. There are median sternotomy wires and mediastinal surgical clips. No consolidation is present. There is no evidence for pulmonary edema. IMPRESSION: No acute cardiopulmonary findings. Cardiomegaly. ACT 112: Negative or not required by law. Electronically signed by: Zechariah Ngo M.D. 04/11/2023 1:19 PM Discharge Plan Visit Data Chief Complaint: Dizziness Stated Complaint: DIZZY/FAINTING SPELLS ED Provider: Alexandre Goodrich Discharge Problem: Near syncope, Complete heart block, transient, Sinus node dysfunction, Hypertension, Sinus bradycardia Patient Disposition: Admitted As Inpatient Discharge Instructions Interventions: ED Discharge Assessment Last Done: 04/11/23 18:12
--- NOTE | 2023-04-11 17:10 | History & Physical Report ---
Date of Service April 11, 2023 Assessment & Plan (1) Third degree heart block: Plan: 3rd Degree Heart Block / 5 second pause - Atenolol held. Patient symptoms have been worse in the morning after taking atenolol High sensitive troponin 23.8 on admission, repeat/trend ordered on admit Echo pending Lyme negative Potassium 4.1, magnesium 1.8. Optimize potassium 4.0, magnesium 2.0 TSH normal - Cardiology consulted. Eliquis and atenolol held. ?pacer - Pacer pads on patient at all times QRS is consistently narrow, if symptomatic bradycardia/significant hemodynamic significant pauses may trial atropine 0.5 mg - At bedside nsr, no pauses, rate ~60. CAD with history of PCI/CABG. History of A-fib s/p ablation, in sinus on admission CABG x4 (HERNÁNDEZ to LAD, SVG to diagonal, SVG to middle OM 2 distal OM) 10/2016 Multiple previous PCI interventions (reports up to 21 stents) Follows with [facility] cardiology. Is on aspirin and Eliquis, no longer on Plavix. Eliquis is held pending cardiology/pacer evaluation Entresto twice daily continued TTE 09/2022: Mildly enlarged left and right atria. Normal left ventricular cavity size. EF 55 to 60%. Mild mitral and mild tricuspid regurg. Denies chest pain, chest pressure Troponin trended as noted, echo pending Anxiety/depression Lexapro 5 mg daily continued COPD Advair continued No evidence of acute exacerbation on admission, lungs are clear GERD Protonix continued Hypertension Atenolol held due to pause/third-degree heart block Amlodipine continued DVT prophylaxis: SCDs, Eliquis held as noted Diet: N.p.o., IVF M Disposition: PCU CODE STATUS: Full code (2) A-fib: (3) Chronic obstructive pulmonary disease: (4) Coronary artery disease: (5) GERD (gastroesophageal reflux disease): (6) Hx of CABG: (7) Hypothyroidism: (8) Hypertension: (9) Paroxysmal atrial fibrillation: History of Present Illness Primary Care Provider: Cony De La Torre MD Melissa is a 78-year-old female with a past medical history of CAD and CABG, hyperlipidemia, hypertension, GERD, A-fib, COPD on Eliquis who presented to the emergency department and was recommended for admission for complete heart block Hx 12 stents, CABG, and cardioversion and ablation with [facility] for afib/flutter. Presented for episodes of dizziness and near syncope No chest pain 5 second pause on mintor, 3rd degree heart block Was seen in [place] 2 weeks ago and was treated for vertigo at the time. HR in the 50s at that time Melissa reports that a week and three days ago she suddenly got 'real buzzy and dizzy'. EPisode was short and 'practically over before it started'. 2 hours later had another episode and felt like she was suddenly lightheaded and blacked out all of a sudden. Only lasted a few seconds. Went to [place] ER. "They did every test in the book and didn't find anything". In particular EKG was normal at that time. UA was normal, CXR/CT-H were all normal. She went home on meclizine in case it was an episode of vertigo. Did well for about one week. 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 She got out of bed and had another episode of lightheadedness which passed when laying in bed. She took 50mg of atenolol and her eliquis and 1x entresto and then a little while later on her Ipad had a funny feeling in her chest and again had 2 more episodes of severe lighteadedness and presyncope without compelte syncope. Did not have any chest pain, chest pressure, or palpitations with this. Notes she always gets weird sensations in her chest with her afib, but this was not different than normal and hadn't had any change with her symptoms. While in ER she had two more episodes of lightheadedness, one of which correlated with an abnormality on her rhythm strip with nursing at bedside. She takes eliquis and baby aspirin daily. Takes aspirin in the evening. No longer on plavix. Mobile telemetry was ordered as an outpatient, was mailed in but has not had any results. Cardiology note 12/16/2022 from [facility] Teodoro Hwang reviewed. At that time amiodarone was stopped and atenolol was dose reduced due to bradycardia. Cardiac history: A-fib ablation 10/04/2022 CABG x4 (HERNÁNDEZ to LAD, SVG to diagonal, SVG to middle OM 2 distal OM) 10/2016 Multiple previous PCI interventions (reports up to 12 stents) Medical History: Reviewed Medications: Reviewed Surgical History: Reviewed Family history: Reviewed Allergies: Reviewed Social History: No tobacco/etoh hx Code Status: Full Allergies Allergy/AdvReac Type Severity Reaction Status Date / Time crab Allergy Intermediate numbness Verified 04/11/23 16:51 of tongue sulfamethoxazole Allergy Unknown yeast Verified 04/11/23 16:51 [From Bactrim] infection trimethoprim [From Bactrim] Allergy Unknown yeast Verified 04/11/23 16:51 infection shellfish derived Allergy numbness Verified 04/11/23 16:51 of tongue isosorbide AdvReac Intermediate Severe Verified 04/11/23 16:51 headache nitroglycerin AdvReac Mild HEADACHE Verified 04/11/23 16:51 rosuvastatin AdvReac Mild MUSCLE PAIN Verified 04/11/23 16:51 simvastatin AdvReac Mild MUSCLE Verified 04/11/23 16:51 CRAMPING pitavastatin [From Livalo] AdvReac Unknown Unknown Verified 04/11/23 16:51 Home Medications Medication Instructions Recorded Confirmed Type albuterol sulfate 90 mcg/actuation 2 inh inhalation .COMPLEX PRN 01/17/20 04/11/23 Rx aerosol inhaler cough/wheeze #18 grams nitroglycerin 0.4 mg sublingual 0.4 mg sublingual Q5M PRN Chest 07/18/21 04/11/23 Rx tablet Pain #25 tabs apixaban 5 mg tablet (Eliquis) 5 mg PO BID 10/10/22 04/11/23 History amlodipine 10 mg tablet 10 mg PO PM #90 tabs 11/30/22 04/11/23 Rx nystatin 100,000 unit/gram topical 1 applic topical BID #60 grams 11/30/22 04/11/23 Rx powder nystatin 100,000 unit/gram topical 1 applic topical BID #60 grams 12/02/22 04/11/23 Rx cream atenolol 100 mg tablet 50 mg PO QAM #45 tabs 12/08/22 04/11/23 Rx escitalopram oxalate 10 mg tablet 5 mg PO QAM 04/05/23 04/11/23 History (Lexapro) lorazepam 1 mg tablet 1 mg PO HS anxiety 04/05/23 04/11/23 History cyanocobalamin (vitamin B-12) 1,000 mcg PO QAM 04/11/23 04/11/23 History 1,000 mcg tablet fluticasone 250 mcg-salmeterol 50 1 inh inhalation BID PRN Shortness 04/11/23 04/11/23 History mcg/dose blistr powdr for Of Breath inhalation (Advair Diskus) meclizine 25 mg tablet 25 mg PO Q8 04/11/23 04/11/23 History pantoprazole 40 mg tablet,delayed 40 mg PO QAM heartburn 04/11/23 04/11/23 History release sacubitril 49 mg-valsartan 51 mg 1 tab PO BID 04/11/23 04/11/23 History tablet (Entresto) Past Med/Surg History Medical History Anxiety Chronic obstructive pulmonary disease Coronary artery disease Depression Diverticular disease GERD (gastroesophageal reflux disease) Hemoptysis (10/04/22) Hyperlipidemia Hypertension Hypothyroidism Leg cramps Low vitamin B12 level Osteoarthritis of multiple joints Paroxysmal atrial fibrillation Peripheral neuropathy Restless legs syndrome Sinus bradycardia Urinary incontinence Surgical History H/O colonoscopy H/O foot surgery H/O partial thyroidectomy History of bowel resection History of partial thyroidectomy Hx of CABG Hx of cardiac catheterization Hx of tonsillectomy Nausea and vomiting after administration of anesthetic agent S/P ablation of atrial fibrillation S/P CABG (coronary artery bypass graft) S/P carpal tunnel release S/P knee replacement Family History Mother Osteoporosis Heart disease Hypertension Other No family history of adverse response to anesthesia Denies family history of Ovarian cancer Prostate cancer Myocardial infarction Breast cancer Colorectal cancer Social History Smoking Status: Never smoker Second Hand Exposure: Yes (Mother smoked. ); Do You Dip or Chew Tobacco: No; Hx Alcohol Use: Yes Alcohol type: beer Alcohol Intake Frequency: 2-4 x/Month Hx Substance Use: No Preferred Language: Nigerian Communication Ability: Effective Visual Impairment: Limited Hearing Ability: Normal Bread Molder Required: No Beliefs That Will Affect Care: None marital status: Current Living Situation: Spouse current occupational status: retired How many Children do You have: 2 Feels Safe at Home: Yes Childhood Exposure to Second-Hand Smoke: Yes Diet: regular caffeine: Yes (coffee) during the past year weight has: remained stable Dental Care, Regularly: Yes Physical Activity Frequency: 3-4 Times per Week Physical Activity Frequency Comment: Works in [employer] Seatbelt Use: always Sunscreen Use: No Do you think of yourself as: straight/heterosexual Gender Identity: Female Assistive Devices: Denture - Upper and Glasses Review of Systems Review of Systems: All systems reviewed & are unremarkable except as noted in HPI & below Physical Exam Physical Exam: General: A&Ox3. NAD. Cooperative. HEENT: Atraumatic, normocephalic. Vision/hearing grossly intact Pulm: CTAB A&P. -wheezes, -rales, -rhonchi. Symmetrical chest rise. No increased work of breathing. No respiratory distress. Cardiac: RRR, +sm. Radial pulses intact and symmetrical. No JVD Abdominal: Nontender, nondistended, soft. BS present. Extremities: Distal extremity strength is grossly intact, coordinator cardiopulmonary services strength, elbow flexion, hip flexion, ankle dorsiflexion/plantarflexion 5/5 bilaterally. Sensation to soft touch intact in hands and feet without deficit Results & Data Results & Data Vital Signs (Past 12 Hours) Vital Signs Temp Pulse Resp BP Pulse Ox O2 Del Method 04/11/23 14:00 52 L 21 163/104 H 95 Room Air 04/11/23 13:30 54 L 15 181/84 H 95 Room Air 04/11/23 13:01 55 L 18 161/82 H 96 Room Air 04/11/23 14:30 98 Room Air 04/11/23 13:18 31 L 04/11/23 13:02 58 L 04/11/23 12:41 36.6 C 54 L 16 180/75 H 98 Room Air PG Care Time/CCT Total # of Minutes Spent Total Time Spent with Patient: Total time spent is greater than 50% in coordination of care (as documented) at patient's floor/unit and/or counseling patient: Coding Level of Care Code 50523 INT INP/OBS CARE 3/75MIN Diagnoses Third degree heart block I44.2 A-fib I48.91 Chronic obstructive pulmonary disease J44.9 Coronary artery disease I25.10 GERD (gastroesophageal reflux disease) K21.9 Hx of CABG Z95.1 Hypothyroidism E03.9 Hypertension I10 Paroxysmal atrial fibrillation I48.0
[2023-04-11] MEDS ORDERED: ATROPINE SULFATE 0.1 MG/ML 5ML SYR IV PRN (17:53)
--- NOTE | 2023-04-11 18:26 | Electrocardiogram Report ---
Test Reason : Blood Pressure : / mmHG Vent. Rate : 058 BPM Atrial Rate : 058 BPM P-R Int : 212 ms QRS Dur : 100 ms QT Int : 416 ms P-R-T Axes : 047 060 077 degrees QTc Int : 408 ms Sinus bradycardia with sinus arrhythmia with 1st degree A-V block Otherwise normal ECG When compared with ECG of 06-JAN-2020 12:49, No significant change was found Confirmed by Adrien Oliveira ([id number]) on 04/11/2023 6:25:49 PM Referred By: REFERRED SELF Confirmed By:Adi Oliveira
[2023-04-11] MEDS ORDERED: NITROGLYCERIN SL 0.4 MG/TAB TAB SL PRN (18:42)
[2023-04-11] MEDS ORDERED: ALBUTEROL HFA 8 GM INHALER INH PRN (18:42)
[2023-04-11] MEDS ORDERED: FLUTICASONE/SALMETEROL 250/50 (ADVAIR) 14 PUFF/1 INHALER INH PRN (18:42)
[2023-04-11] MEDS: ACETAMINOPHEN 325 MG TAB PO PRN (20:08)
[2023-04-11] MEDS: LORazepam 0.5 MG TAB PO SCH (20:28)
[2023-04-11] MEDS: VALSARTAN/SACUBITRIL 51/49 MG TAB PO SCH (20:29)
[2023-04-11] MEDS: amLODIPine BESYLATE 5 MG TAB PO SCH (20:29)
[2023-04-11] MEDS: NSS + 20MEQ KCL 20 MEQ/1,000 ML BAG IV SCH (20:32)
[2023-04-12] MEDS: NSS + 20MEQ KCL 20 MEQ/1,000 ML BAG IV SCH ×2 (05:32→11:48)
[2023-04-12 07:26] LABS: Basophils # (auto) 0.04 K/uL (0-0.2); Basophils % (auto) 0.9 %; Eosinophils % (auto) 4.7 %; Hematocrit (blood only) 39.2 % (37.0-47.0); Hemoglobin 13.4 g/dl (12.0-16.0); Immature Granulocytes # (auto) 0.01 K/uL (0.01-0.20); Immature Granulocytes % (auto) 0.2 %; Lymphocytes # (auto) 1.22 K/uL (1.2-3.4); Lymphocytes % (auto) 28.7 %; Mean Corpuscular Hemoglobin 29.8 pg (25.0-34.0); Mean Corpuscular Hgb Conc 34.2 g/dL (32.0-36.0); Mean Corpuscular Volume 87.3 fL (80.0-100.0); Mean Platelet Volume 11.7 fL (9.4-12.4); Monocytes % (auto) 11.8 %; Neutrophils # (auto) 2.28 K/uL (1.40-6.50); Neutrophils % (auto) 53.7 %; Platelet Count 162 K/uL (130-400); RDW Coefficient of Variation 13.6 % (11.5-14.5); RDW Standard Deviation 43.9 fL (36.4-46.3); Red Blood Count 4.49 M/uL (4.20-5.40); White Blood Count 4.25 K/ul (4.8-10.8)
[2023-04-12] MEDS: ACETAMINOPHEN 325 MG TAB PO PRN (07:30)
[2023-04-12] MEDS: VALSARTAN/SACUBITRIL 51/49 MG TAB PO SCH ×2 (07:31→20:23)
[2023-04-12] MEDS: ESCITALOPRAM OXALATE 10 MG TAB PO SCH (07:31)
[2023-04-12] MEDS: PANTOprazole 40 MG TAB PO SCH (07:31)
[2023-04-12 07:42] LABS: BUN Creatinine Ratio 13.2 (10-20); Calcium 8.8 mg/dl (8.6-10.3); Creatinine Clr Calc Pharmacy 69.7 ml/min; Est GFR (African American) 98.5 ml/min; Magnesium 2.2 mg/dl (1.7-2.4); Potassium 4.3 mmol/L (3.5-5.1)
[2023-04-12] MEDS: FLUTICASONE/VILANTEROL 200/25MCG 14 PUFFS/INHALER INH SCH (07:49)
--- NOTE | 2023-04-12 10:31 | Cardiology Consultation ---
Date of Consultation April 12, 2023 Assessment & Plan (1) Complete heart block, transient: (2) Coronary artery disease: (3) A-fib: (4) Mitral regurgitation: Plan 1. Complete heart block: While in emergency room the patient had a typical day dizzy spell. She was at rest without any prodrome. She was noted to have complete heart block with associated ventricular asystole lasting a few seconds. We discussed options for treatment. One would be discontinuation of her atenol ol and continued monitoring. There is no guarantee that this would be efficacious in eliminating her symptoms. A 2nd would be implantation of a pacemaker. She is more concerned about recurrent episodes and the possibility of syncope. At this point will plan on proceeding. We did discuss the risks, benefits and alternatives. 2. Coronary disease: A long history of both percutaneous and surgical revascularization. No current symptoms suggestive of coronary insufficiency or angina. She will continue on her outpatient medical regimen which includes apixaban. Apparently intolerant to statin therapy previously. 3. Atrial fibrillation: She underwent pulmonary vein isolation in September of last year. No clinical recurrence. Continuing systemic anticoagulation. 4. Valvular heart disease: Noted to have mild mitral regurgitation on transesophageal echocardiogram in September. Not noted on today's examination. 5. Heart failure with preserved ejection fraction: Mildly elevated BNP. No current symptoms suggestive of pulmonary congestion and none on examination or x-ray. She believes she was started on Entresto for heart failure. Spironolactone or an SGLT 2 inhibitor may be more efficacious History of Present Illness Reason for Consultation: Dizziness, heart block Requesting Physician: Pita Attending Physician: Jeffrey Barron History of Present Illness The patient is a 78-year-old woman with an extensive cardiac history to include coronary artery disease status post both percutaneous and surgical revascularization, atrial fibrillation status post ablation and a diagnosis of heart failure with preserved ejection fraction who presented to the emergency room with symptoms of dizziness and lightheadedness. Patient states that a few weeks ago she began have spells where she felt somewhat dizzy and heard a buzzing in her head. She believes she did lose consciousness on occasion for few seconds. Some these episodes were witnessed. They all occurred at rest. There is no specific prodrome. She did not have associated symptoms of nausea or diaphoresis. Afterwards she felt well. She presented to an outside facility for an initial evaluation. This was unremarkable. No specific etiology was discovered. Based on the nature of her symptoms she was given an outpatient ZIO patch. However, while wearing the patch she had no symptoms. Yesterday she had 2 additional episodes while at rest. One episode occurred while she was in our emergency room. This demonstrated high-degree heart block with ventricular asystole lasting a few seconds. She is otherwise an active individual. She states she is able to do strenuous outdoor activities without limitation or symptom. She has not had recurrence of her index angina which involved jaw discomfort doing these activities. She denies limiting dyspnea. No sense of palpitation. No dizziness, presyncope or syncope with activity. Allergies Allergy/AdvReac Type Severity Reaction Status Date / Time crab Allergy Intermediate numbness Verified 04/11/23 16:51 of tongue metoprolol Allergy Unknown swelling Verified 04/11/23 17:58 sulfamethoxazole Allergy Unknown yeast Verified 04/11/23 16:51 [From Bactrim] infection trimethoprim [From Bactrim] Allergy Unknown yeast Verified 04/11/23 17:58 infection and Nausea and Vomitting shellfish derived Allergy numbness Verified 04/11/23 17:58 of tongue/edema of face/lips/tongue isosorbide AdvReac Intermediate Severe Verified 04/11/23 16:51 headache nitroglycerin AdvReac Mild HEADACHE Verified 04/11/23 16:51 rosuvastatin AdvReac Mild MUSCLE PAIN Verified 04/11/23 16:51 simvastatin AdvReac Mild MUSCLE Verified 04/11/23 16:51 CRAMPING pitavastatin [From Livalo] AdvReac Unknown Unknown Verified 04/11/23 16:51 prednisone AdvReac Unknown Tachycardia Verified 04/11/23 17:58 Home Medications Medication Instructions Recorded Confirmed Type albuterol sulfate 90 mcg/actuation 2 inh inhalation .COMPLEX PRN 01/17/20 04/11/23 Rx aerosol inhaler cough/wheeze #18 grams nitroglycerin 0.4 mg sublingual 0.4 mg sublingual Q5M PRN Chest 07/18/21 04/11/23 Rx tablet Pain #25 tabs apixaban 5 mg tablet (Eliquis) 5 mg PO BID 10/10/22 04/11/23 History amlodipine 10 mg tablet 10 mg PO PM #90 tabs 11/30/22 04/11/23 Rx nystatin 100,000 unit/gram topical 1 applic topical BID #60 grams 11/30/22 04/11/23 Rx powder nystatin 100,000 unit/gram topical 1 applic topical BID #60 grams 12/02/22 04/11/23 Rx cream atenolol 100 mg tablet 50 mg PO QAM #45 tabs 12/08/22 04/11/23 Rx escitalopram oxalate 10 mg tablet 5 mg PO QAM 04/05/23 04/11/23 History (Lexapro) lorazepam 1 mg tablet 1 mg PO HS anxiety 04/05/23 04/11/23 History cyanocobalamin (vitamin B-12) 1,000 mcg PO QAM 04/11/23 04/11/23 History 1,000 mcg tablet fluticasone 250 mcg-salmeterol 50 1 inh inhalation BID PRN Shortness 04/11/23 04/11/23 History mcg/dose blistr powdr for Of Breath inhalation (Advair Diskus) meclizine 25 mg tablet 25 mg PO Q8 04/11/23 04/11/23 History pantoprazole 40 mg tablet,delayed 40 mg PO QAM heartburn 04/11/23 04/11/23 History release sacubitril 49 mg-valsartan 51 mg 1 tab PO BID 04/11/23 04/11/23 History tablet (Entresto) Patient History Medical History Anxiety Chronic obstructive pulmonary disease Coronary artery disease multiple cardiac stents (total of 13/most recent 2014), CABG x4 (2016) Depression Diverticular disease GERD (gastroesophageal reflux disease) Hemoptysis (10/04/22) Hyperlipidemia Hypertension Hypothyroidism Leg cramps Low vitamin B12 level Osteoarthritis of multiple joints Paroxysmal atrial fibrillation Peripheral neuropathy Restless legs syndrome Sinus bradycardia Urinary incontinence Surgical History H/O colonoscopy 07/17/2013 repeat 5yrs H/O foot surgery bunionectomy on right foot/rinaldi's neuroma removal bilaterally H/O partial thyroidectomy History of bowel resection partial History of partial thyroidectomy Hx of CABG 4 VESSEL (10/2016) Hx of cardiac catheterization Hx of tonsillectomy Nausea and vomiting after administration of anesthetic agent S/P ablation of atrial fibrillation 09/2022 Dr Braxton Hwang S/P CABG (coronary artery bypass graft) S/P carpal tunnel release S/P knee replacement Right TKA: 10/10/18 at [facility] Family History Mother Osteoporosis Heart disease Hypertension Other No family history of adverse response to anesthesia Denies family history of Ovarian cancer Prostate cancer Myocardial infarction Breast cancer Colorectal cancer Social History Smoking Status: Never smoker Second Hand Exposure: Yes (Mother smoked. ); Do You Dip or Chew Tobacco: No; Hx Alcohol Use: Yes Alcohol type: beer and wine Alcohol Intake Frequency: 2-4 x/Month Hx Substance Use: No Preferred Language: [place] Islander Communication Ability: Effective Visual Impairment: Limited Hearing Ability: Normal Can Maker Required: No Beliefs That Will Affect Care: None marital status: Current Living Situation: Spouse current occupational status: retired How many Children do You have: 2 Other Information That Helps Us Care for You: No Feels Safe at Home: Yes Safety Concerns: Feels Safe At This Time Childhood Exposure to Second-Hand Smoke: Yes Diet: regular caffeine: Yes (coffee) during the past year weight has: remained stable Dental Care, Regularly: Yes Physical Activity Frequency: 3-4 Times per Week Physical Activity Frequency Comment: Works in [employer] Seatbelt Use: always Sunscreen Use: No Do you think of yourself as: straight/heterosexual Gender Identity: Female Assistive Devices: Denture - Upper and Glasses Review of Systems Review of Systems: Per HPI. No recent constitutional symptoms such as fevers or chills. Physical Exam Physical Exam: She is alert and oriented x3. Mood affect appear normal. She answered all questions appropriately. HEENT: Sclerae are anicteric. Pupils are equal and reactive to light and accommodation. Extraocular movements were intact. Neuro: Cranial nerves intact Lungs: Lungs are clear to auscultation bilaterally. There are no rales wheezes or rhonchi. She has normal respiratory effort without use of accessory muscles. There is normal pulmonary excursion. Cardiac: The rhythm was regular. S1 and S2 were normal. There are no murmurs on examination. The PMI was not markedly displaced on palpation. Extremities: Patient has bilateral radial pulses that are equal in intensity. There is no evidence cyanosis or clubbing. There was no evidence of significant peripheral edema bilaterally. Skin: There are no rashes noted on examination today. Results & Data Vital Signs (Past 12 Hours) Vital Signs Temp Pulse Pulse Resp BP Pulse Ox O2 Del Method 04/12/23 07:42 36.6 C 59 L 18 170/76 H 96 Room Air 04/12/23 04:13 36.5 C 18 126/73 95 Room Air 04/12/23 00:14 47 L 04/11/23 23:05 36.4 C L 51 L 18 116/63 98 Room Air Laboratory Results Abnormal Lab Results 04/11/23 04/11/23 04/11/23 13:06 13:06 13:06 WBC 4.65 L RBC 4.98 Hgb 14.8 Hct 43.3 MCV 86.9 MCH 29.7 MCHC 34.2 RDW Std Deviation 42.5 RDW Coeff of Kp 13.3 Plt Count 174 MPV 11.8 Immature Gran % (Auto) 0.2 Neut % (Auto) 61.0 Lymph % (Auto) 22.8 Burnett % (Auto) 9.9 Eos % (Auto) 5.2 Baso % (Auto) 0.9 Neut # (Auto) 2.84 Lymph # (Auto) 1.06 L Burnett # (Auto) 0.46 Eos # (Auto) 0.24 Baso # (Auto) 0.04 Immature Gran # (Auto) 0.01 Sodium 139 Potassium 4.1 Chloride 107 Carbon Dioxide 28 Anion Gap 4 BUN 13 Creatinine 0.80 Est Cr Clr Drug Dosing 59.0 Est GFR ( Amer) 83.0 Est GFR (Non-Af Amer) 71.6 BUN/Creatinine Ratio 16.3 Glucose 108 H Calcium 9.8 Phosphorus 3.0 Magnesium 1.8 Total Bilirubin 0.6 AST 18 ALT 13 Alkaline Phosphatase 93 Troponin I High Sens 23.8 H Total Protein 7.1 Albumin 4.3 Globulin 2.8 Albumin/Globulin Ratio 1.5 Lipase 19 TSH 2.227 Lyme Disease IgG Ab Lyme Disease IgM Ab SARS-CoV-2, RNA, NAAT 04/11/23 04/11/23 04/11/23 13:06 16:01 17:20 WBC RBC Hgb Hct MCV MCH MCHC RDW Std Deviation RDW Coeff of Kp Plt Count MPV Immature Gran % (Auto) Neut % (Auto) Lymph % (Auto) Burnett % (Auto) Eos % (Auto) Baso % (Auto) Neut # (Auto) Lymph # (Auto) Burnett # (Auto) Eos # (Auto) Baso # (Auto) Immature Gran # (Auto) Sodium Potassium Chloride Carbon Dioxide Anion Gap BUN Creatinine Est Cr Clr Drug Dosing Est GFR ( Amer) Est GFR (Non-Af Amer) BUN/Creatinine Ratio Glucose Calcium Phosphorus Magnesium Total Bilirubin AST ALT Alkaline Phosphatase Troponin I High Sens 23.4 H Total Protein Albumin Globulin Albumin/Globulin Ratio Lipase TSH Lyme Disease IgG Ab Negative Lyme Disease IgM Ab Negative SARS-CoV-2, RNA, NAAT NEGATIVE 04/12/23 04/12/23 06:36 06:36 WBC 4.25 L RBC 4.49 Hgb 13.4 Hct 39.2 MCV 87.3 MCH 29.8 MCHC 34.2 RDW Std Deviation 43.9 RDW Coeff of Kp 13.6 Plt Count 162 MPV 11.7 Immature Gran % (Auto) 0.2 Neut % (Auto) 53.7 Lymph % (Auto) 28.7 Burnett % (Auto) 11.8 Eos % (Auto) 4.7 Baso % (Auto) 0.9 Neut # (Auto) 2.28 Lymph # (Auto) 1.22 Burnett # (Auto) 0.50 Eos # (Auto) 0.20 Baso # (Auto) 0.04 Immature Gran # (Auto) 0.01 Sodium 140 Potassium 4.3 Chloride 108 H Carbon Dioxide 27 Anion Gap 5 BUN 9 Creatinine 0.68 Est Cr Clr Drug Dosing 69.7 Est GFR ( Amer) 98.5 Est GFR (Non-Af Amer) 85.0 BUN/Creatinine Ratio 13.2 Glucose 106 H Calcium 8.8 Phosphorus Magnesium 2.2 Total Bilirubin AST ALT Alkaline Phosphatase Troponin I High Sens Total Protein Albumin Globulin Albumin/Globulin Ratio Lipase TSH Lyme Disease IgG Ab Lyme Disease IgM Ab SARS-CoV-2, RNA, NAAT Diagnostic Findings Coronary bypass grafting 2016: Garcia to LAD, saphenous vein graft to diagonal, saphenous vein graft to proximal and distal OM Cardioversion June 2022 Pulmonary vein isolation 10/04/2022 Transesophageal echocardiogram 10/04/2022: Mild left and right atrial dilation, normal LV systolic function, mild mitral regurgitation Cardiac perfusion study 06/03/2022: Small reversible apical defect. No other ischemia or infarct. Ejection fraction 71% on gated images. Chest x-ray obtained on admission not reveal any acute cardiopulmonary process Carotid duplex performed 04/07/2023: No obstructive carotid disease. Antegrade flow in the vertebral arteries. Echocardiogram performed today revealed preserved LV systolic function with stage II diastolic dysfunction. No significant valvular heart disease ECG Additional Comments: EKG obtained the time admission revealed sinus bradycardia with 1st degree AV block PG Care Time/CCT Total # of Minutes Spent Total Time Spent with Patient: Total time spent is greater than 50% in coordination of care (as documented) at patient's floor/unit and/or counseling patient: Coding Level of Care Code 29179 INT INP/OBS CARE 3/75MIN Diagnoses Complete heart block, transient I44.2 Coronary artery disease I25.10 A-fib I48.91 Mitral regurgitation I34.0
--- NOTE | 2023-04-12 10:36 | XCELERA ---
[id number]
--- NOTE | 2023-04-12 12:31 | Electrocardiogram Report ---
Test Reason : Blood Pressure : / mmHG Vent. Rate : 058 BPM Atrial Rate : 058 BPM P-R Int : 212 ms QRS Dur : 094 ms QT Int : 432 ms P-R-T Axes : 040 047 058 degrees QTc Int : 424 ms Sinus bradycardia with sinus arrhythmia with 1st degree A-V block Otherwise normal ECG When compared with ECG of 11-APR-2023 12:54, No significant change was found Confirmed by Adrien Oliveira ([id number]) on 04/12/2023 12:31:04 PM Referred By: REFERRED SELF Confirmed By:Adi Oliveira
[2023-04-12] MEDS: amLODIPine BESYLATE 5 MG TAB PO SCH (20:23)
[2023-04-12] MEDS: LORazepam 0.5 MG TAB PO SCH (20:23)
--- NOTE | 2023-04-12 22:17 | Hospitalist Progress Note ---
Date of Service April 12, 2023 Assessment & Plan (1) Third degree heart block: Plan: 3rd Degree Heart Block / 5 second pause - Atenolol held. Patient symptoms have been worse in the morning after taking atenolol High sensitive troponin 23.8 on admission, repeat/trend ordered on admit Echo pending Lyme negative Potassium 4.1, magnesium 1.8. Optimize potassium 4.0, magnesium 2.0 TSH normal - Cardiology consulted. Eliquis and atenolol held. ?pacer - Pacer pads on patient at all times QRS is consistently narrow, if symptomatic bradycardia/significant hemodynamic significant pauses may trial atropine 0.5 mg - At bedside nsr, no pauses, rate ~60. Plan for pacemaker in AM. Patient concerned about PVC, hailee monitor. CAD with history of PCI/CABG. History of A-fib s/p ablation, in sinus on admission CABG x4 (HERNÁNDEZ to LAD, SVG to diagonal, SVG to middle OM 2 distal OM) 10/2016 Multiple previous PCI interventions (reports up to 21 stents) Follows with [facility] cardiology. Is on aspirin and Eliquis, no longer on Plavix. Eliquis is held pending cardiology/pacer evaluation Entresto twice daily continued TTE 09/2022: Mildly enlarged left and right atria. Normal left ventricular cavity size. EF 55 to 60%. Mild mitral and mild tricuspid regurg. Denies chest pain, chest pressure Troponin trended as noted, echo pending Anxiety/depression Lexapro 5 mg daily continued COPD Advair continued No evidence of acute exacerbation on admission, lungs are clear GERD Protonix continued Hypertension Atenolol held due to pause/third-degree heart block Amlodipine continued DVT prophylaxis: SCDs, Eliquis held as noted Diet: N.p.o., IVF M Disposition: PCU CODE STATUS: Full code (2) A-fib: (3) Chronic obstructive pulmonary disease: (4) Coronary artery disease: (5) GERD (gastroesophageal reflux disease): (6) Hx of CABG: (7) Hypothyroidism: (8) Hypertension: (9) Paroxysmal atrial fibrillation: Admission and Anticipated Discharge Date Admission Date: April 11, 2023 Subjective Patient reports no new symptoms. Review of Systems Review of Systems: All systems reviewed & are unremarkable except as noted in HPI & below Physical Exam Physical Exam: Patient is lying in bed in no acute distress.Able to move all 4 extremities Normal inspection to eyes nose and ears. Results & Data Results & Data Vital Signs (Past 12 Hours) Vital Signs Temp Pulse Resp BP Pulse Ox O2 Del Method 04/12/23 19:46 36.6 C 58 L 18 168/73 H 97 Room Air 04/12/23 15:35 36.6 C 61 18 151/83 H 97 Room Air 04/12/23 11:23 36.6 C 54 L 18 139/66 94 Room Air PG Care Time/CCT Total # of Minutes Spent Total Time Spent with Patient: Total time spent is greater than 50% in coordination of care (as documented) at patient's floor/unit and/or counseling patient: Coding Level of Care Code 04499 SUB INP/OBS CARE 2/35MIN Diagnoses Third degree heart block I44.2 A-fib I48.91 Chronic obstructive pulmonary disease J44.9 Coronary artery disease I25.10 GERD (gastroesophageal reflux disease) K21.9 Hx of CABG Z95.1 Hypothyroidism E03.9 Hypertension I10 Paroxysmal atrial fibrillation I48.0
[2023-04-13 06:44] LABS: Basophils # (auto) 0.05 K/uL (0-0.2); Basophils % (auto) 0.9 %; Eosinophils # (auto) 0.22 K/uL (0-0.50); Eosinophils % (auto) 4.1 %; Hematocrit (blood only) 43.9 % (37.0-47.0); Hemoglobin 15.1 g/dl (12.0-16.0); Immature Granulocytes # (auto) 0.01 K/uL (0.01-0.20); Immature Granulocytes % (auto) 0.2 %; Lymphocytes % (auto) 25.8 %; Mean Corpuscular Hemoglobin 30.3 pg (25.0-34.0); Mean Corpuscular Hgb Conc 34.4 g/dL (32.0-36.0); Mean Corpuscular Volume 88.2 fL (80.0-100.0); Mean Platelet Volume 11.1 fL (9.4-12.4); Monocytes # (auto) 0.54 K/uL (0.11-0.59); Platelet Count 174 K/uL (130-400); RDW Coefficient of Variation 13.5 % (11.5-14.5); RDW Standard Deviation 43.6 fL (36.4-46.3); Red Blood Count 4.98 M/uL (4.20-5.40); White Blood Count 5.42 K/ul (4.8-10.8)
[2023-04-13] MEDS ORDERED: VANCOMYCIN HCL 1000MG/20ML VIAL ONE (06:56)
[2023-04-13] MEDS ORDERED: WATER, STERILE FOR INJ 10 ML VIAL ONE (06:56)
[2023-04-13] MEDS ORDERED: BUPIVACAINE 0.25% PF 30 ML VIAL ONE (06:56)
[2023-04-13 06:59] LABS: BUN Creatinine Ratio 16.5 (10-20); Calcium 9.6 mg/dl (8.6-10.3); Est GFR (African American) 84.3 ml/min; Est GFR (Non-African American) 72.7 ml/min; Magnesium 2.2 mg/dl (1.7-2.4); Phosphorus 3.5 mg/dl (2.5-4.9); Potassium 4.3 mmol/L (3.5-5.1)
[2023-04-13] MEDS: ESCITALOPRAM OXALATE 10 MG TAB PO SCH (07:48)
[2023-04-13] MEDS: VALSARTAN/SACUBITRIL 51/49 MG TAB PO SCH (07:48)
[2023-04-13] MEDS: FLUTICASONE/VILANTEROL 200/25MCG 14 PUFFS/INHALER INH SCH (07:49)
[2023-04-13] MEDS: PANTOprazole 40 MG TAB PO SCH (07:49)
--- NOTE | 2023-04-13 09:26 | Pre Anesthesia Assessment ---
Date of Service April 13, 2023 Pre Sedation Assessment Vital Signs Temp Pulse Pulse Resp BP Pulse Ox O2 Del Method 04/13/23 09:15 70 16 165/79 H Room Air 04/13/23 08:00 53 L 04/13/23 07:20 36.7 C 60 18 138/75 95 Room Air 04/12/23 23:00 55 L 04/12/23 23:28 36.7 C 55 L 18 148/75 H 91 Room Air 04/12/23 19:46 36.6 C 58 L 18 168/73 H 97 Room Air 04/12/23 15:35 36.6 C 61 18 151/83 H 97 Room Air 04/12/23 11:23 36.6 C 54 L 18 139/66 94 Room Air Cardiovascular + regular rate and + regular rhythm Respiratory + respiratory effort normal Pre-Sedation Airway Assessment Smoking Status: Never smoker Hx Sleep Apnea: Yes Hx Difficult Intubation: No Short, Thick Neck: Yes Thyromental Distance: > or= 3.5 Finger Breadths Oral Cavity: + Dentures Mallampati Class: III ASA: ASA3 NPO Status Date of Last Intake of Fluids: 04/12/23 Time of Last Intake of Fluids: 20:00 Date of Last Intake of Solid Food: 04/12/23 Time of Last Intake of Solid Foods: 20:00 Procedure Planning Contraindications for Sedation: none Current Medications Reviewed: Yes Notes The planned sedation has been discussed with the patient. Informed Consent was obtained. I have identified the patient, determined the appropriateness of sedation and have assessed the patient immediately prior to the procedure. All medicine(s) and interventions are by my order.
[2023-04-13] MEDS ORDERED: ceFAZolin 330 MG/ML 1 GM VIAL ONE (09:28)
[2023-04-13] MEDS ORDERED: MIDAZOLAM HCL 5 MG/ML 1 ML VIAL ONE (09:28)
[2023-04-13] MEDS ORDERED: fentaNYL citrate PF 100 MCG/2 ML VIAL ONE (09:28)
--- NOTE | 2023-04-13 11:14 | Electrophysiology Report ---
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 These episodes correlated with transient heart block and associated ventricular asystole. She was therefore felt to be a good candidate for permanent pacemaker due to symptomatic nonreversible AV node dysfunction. A dual-chamber device was selected and she is currently in sinus rhythm and wish to maintain AV synchrony. Procedure in detail: The patient was informed of the risks benefits and alternatives to the intended procedure and she wished to proceed. She was taken to the electrophysiology suite in a fasting state. A preoperative antibiotic had been administered. The patient was monitored electrocardiographically throughout today's procedure and conscious sedation was administered per protocol. The left upper pectoral area is prepped and draped in usual sterile fashion. This area was anesthetized using subcutaneous administration of a xylocaine solution. An incision was made at this site and carried down to the prepectoralis fascia using sharp dissection. Electrocautery was also employed for dissection as well as for hemostasis. A device pocket was fashioned tissues above the pectoralis muscle. Subsequent to this maneuver the left axillary vein was accessed using modified Seldinger technique. Sheath was placed over guidewire and used to facilitate passage of a guiding catheter for mapping of the interventricular septum. At an appropriate site the pacing lead was advanced into the interventricular septum. Adequate sensing threshold parameters as well as desirable morphology and activation were confirmed prior to removal of the guiding catheter. The proximal portion of lead was then sutured to the prepectoralis fascia using nonabsorbable suture. A sheath was placed over the remaining guidewire and used to stay passage of the pacing lead to the right atrium under fluoroscopic guidance. Adequate sensing and threshold parameters were obtained prior to active-fixation of this lead to the endocardial surface. The proximal portion of the lead was then sutured the prepectoralis fascia using nonabsorbable suture. The device pocket was irrigated with antibiotic solution. The leads were then attached to the device. The device and leads were then placed in the pocket and pocket was closed in 3 layers of absorbable suture. Steri-Strips and sterile dressing were applied. The device was tested noninvasively prior to conclusion the procedure. The patient tolerated procedure well there no immediate complications. Equipment used: New pulse generator: [employer]igator [employer]. Model number: [id number] serial number [id number] Right atrial lead: Special Investigation Unit Investigator [employer]. Model number: [id number] serial number [id number] Right ventricular lead: Special Investigation Unit Investigator [employer]. Model number: 3830 serial number [id number] Measured data: Right atrial lead: P waves measured 2.8 mV. Pacing threshold was 0.75 V at 0.4 ms with a pacing impedance of 513 ohms Right ventricular lead: R waves measured 7.6 mV and a bipolar configuration. Pacing threshold 1.5 V at 0.4 ms with a pacing impedance of 551 ohms Impression: Successful implantation of dual-chamber permanent pacemaker with left bundle pacing lead MN[employer] Electrophysiology codes Pacing Procedure 1: Pacin Insert/Replace Pacer A & V PG Moderate Sedation Codes Moderate Sedation Codes Procedure 1: Sedation/Anesthesia: 19611 Mod Sedation by the same physician;Init15 Min Child Age 5 & Up Procedure 2: Sedation/Anesthesia: 42980 Mod Sedation by the same physician; Ea [id number] Minutes
--- NOTE | 2023-04-13 11:14 | Post Anesthesia Assessment ---
Date of Service April 13, 2023 Post Sedation Assessment Vital Signs Temp Pulse Pulse Resp BP Pulse Ox O2 Del Method 04/13/23 09:15 70 16 165/79 H Room Air 04/13/23 08:00 53 L 04/13/23 07:20 36.7 C 60 18 138/75 95 Room Air 04/12/23 23:00 55 L 04/12/23 23:28 36.7 C 55 L 18 148/75 H 91 Room Air 04/12/23 19:46 36.6 C 58 L 18 168/73 H 97 Room Air 04/12/23 15:35 36.6 C 61 18 151/83 H 97 Room Air 04/12/23 11:23 36.6 C 54 L 18 139/66 94 Room Air Recovery Score Activity: Moves 4 extremities Respiration: Deep Breath/Cough Circulation: +/-20% PreAnes Value Consciousness: Fully Awake Oxygen Saturation: > 92% On Room Air Discharge Sedation Level of Care: Fast Track Phase II Post Sedation Plan On clinical assessment, the patient appears to have tolerated the sedation without complications. Patient is recovering as anticipated. Patient will continue to be monitored by nursing and may be discharged when sedation discharge criteria are met per below protocol. Upon Completions of procedure up to 15 minutes continue every 5 minute vital signs and the P.A.R. score; then discharge to a Phase I or Fast Track to Phase II per the following guidelines: * Discharge Patient to appropriate Phase II area if PAR is 8 or greater or return to pre- procedure baseline. The post - procedure orders will be as directed. * If PAR score is less than 8 or not return to pre-procedure baseline then patient will follow Phase I monitoring till PAR is reached for Phase II. The Phase I may be done in procedure room or may call to secure a Phase I area. * If naloxone or flumazenil are used for reversal, hold in Phase I for continued monitoring from when last reversal dose was given for a minimum of 60 minutes or longer pending the nurse and/or physician discretion of patient condition before discharge to Phase II. Please call the Sedation Physician to re-evaluate and complete post-note for discharge to Phase II area. Do NOT discharge from procedure sedation or Phase 1 until post- sedation evaluation note is complete by procedure /sedation MD Sedation Discharge Instructions to be given to the patient at discharge to home.
[2023-04-13] MEDS: oxyCODONE HCL IR 5 MG TAB (IMMEDIATE RELEASE) PO PRN ×2 (12:01→16:04)
--- NOTE | 2023-04-13 12:58 | Discharge Summary ---
Date of Service April 13, 2023 Admission HPI Per Admitting Provider Melissa is a 78-year-old female with a past medical history of CAD and CABG, hyperlipidemia, hypertension, GERD, A-fib, COPD on Eliquis who presented to the emergency department and was recommended for admission for complete heart block Hx 12 stents, CABG, and cardioversion and ablation with [facility] for afib/flutter. Presented for episodes of dizziness and near syncope No chest pain 5 second pause on mintor, 3rd degree heart block Was seen in [place] 2 weeks ago and was treated for vertigo at the time. HR in the 50s at that time Melissa reports that a week and three days ago she suddenly got 'real buzzy and dizzy'. EPisode was short and 'practically over before it started'. 2 hours later had another episode and felt like she was suddenly lightheaded and blacked out all of a sudden. Only lasted a few seconds. Went to [place] ER. "They did every test in the book and didn't find anything". In particular EKG was normal at that time. UA was normal, CXR/CT-H were all normal. She went home on meclizine in case it was an episode of vertigo. Did well for about one week. 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 She got out of bed and had another episode of lightheadedness which passed when laying in bed. She took 50mg of atenolol and her eliquis and 1x entresto and then a little while later on her Ipad had a funny feeling in her chest and again had 2 more episodes of severe lighteadedness and presyncope without compelte syncope. Did not have any chest pain, chest pressure, or palpitations with this. Notes she always gets weird sensations in her chest with her afib, but this was not different than normal and hadn't had any change with her symptoms. While in ER she had two more episodes of lightheadedness, one of which correlated with an abnormality on her rhythm strip with nursing at bedside. She takes eliquis and baby aspirin daily. Takes aspirin in the evening. No longer on plavix. Mobile telemetry was ordered as an outpatient, was mailed in but has not had any results. Cardiology note 12/16/2022 from [facility] Teodoro Hwang reviewed. At that time amiodarone was stopped and atenolol was dose reduced due to bradycardia. Cardiac history: A-fib ablation 10/04/2022 CABG x4 (HERNÁNDEZ to LAD, SVG to diagonal, SVG to middle OM 2 distal OM) 10/2016 Multiple previous PCI interventions (reports up to 12 stents) Medical History: Reviewed Medications: Reviewed Surgical History: Reviewed Family history: Reviewed Allergies: Reviewed Social History: No tobacco/etoh hx Code Status: Full Principal Diagnosis third degree heart block Discharge Exam Patient is lying in bed in no acute distress.Able to move all 4 extremities Normal inspection to eyes nose and ears. Discharge Data Allergies Allergy/AdvReac Type Severity Reaction Status Date / Time crab Allergy Intermediate numbness Verified 04/11/23 16:51 of tongue metoprolol Allergy Unknown swelling Verified 04/11/23 17:58 sulfamethoxazole Allergy Unknown yeast Verified 04/11/23 16:51 [From Bactrim] infection trimethoprim [From Bactrim] Allergy Unknown yeast Verified 04/11/23 17:58 infection and Nausea and Vomitting shellfish derived Allergy numbness Verified 04/11/23 17:58 of tongue/edema of face/lips/tongue isosorbide AdvReac Intermediate Severe Verified 04/11/23 16:51 headache nitroglycerin AdvReac Mild HEADACHE Verified 04/11/23 16:51 rosuvastatin AdvReac Mild MUSCLE PAIN Verified 04/11/23 16:51 simvastatin AdvReac Mild MUSCLE Verified 04/11/23 16:51 CRAMPING pitavastatin [From Livalo] AdvReac Unknown Unknown Verified 04/11/23 16:51 prednisone AdvReac Unknown Tachycardia Verified 04/11/23 17:58 Consultations 04/11/23 15:57 ED Decision to Admit Stat 04/11/23 18:42 Consult Cardiology Routine Procedures Performed Operation Date: 04/13/23 12:00 Actual Procedures p Pacer with A/V Leads (Dual) - Adrien Oliveira MD Ordered Studies 04/13/23 06:45 EP Lab Images for PACS ONCE Hospital Course (1) Third degree heart block: 3rd Degree Heart Block / 5 second pause Cardiology was consulted: Multiple options discussed. PAtient decided on pacemaker insertion. Beta saran will be continued. Patient did have a slight demand ischemia but trop did not go above 30. Lyme negative CAD with history of PCI/CABG. History of A-fib s/p ablation, in sinus on admission CABG x4 (HERNÁNDEZ to LAD, SVG to diagonal, SVG to middle OM 2 distal OM) 10/2016 Multiple previous PCI interventions (reports up to 21 stents) Follows with [facility] cardiology. Is on aspirin and Eliquis, no longer on Plavix. Eliquis is held pending cardiology/pacer evaluation Entresto twice daily continued TTE 09/2022: Mildly enlarged left and right atria. Normal left ventricular cavity size. EF 55 to 60%. Mild mitral and mild tricuspid regurg. Denies chest pain, chest pressure *Possible demand ischemia Troponin trended as noted, Anxiety/depression Lexapro 5 mg daily continued COPD Advair continued No evidence of acute exacerbation on admission, lungs are clear GERD Protonix continued Hypertension Atenolol held initially due to pause/third-degree heart block Amlodipine continued (2) A-fib: (3) Chronic obstructive pulmonary disease: (4) Coronary artery disease: (5) GERD (gastroesophageal reflux disease): (6) Hx of CABG: (7) Hypothyroidism: (8) Hypertension: (9) Paroxysmal atrial fibrillation: Total Time Total Time Spent Total Time Spent (In Minutes): 32 Discharge Plan Discharge Items Patient Disposition: Home - Self-Care Reason For Visit: 3RD HB, 5 SEC PAUSE + SYMPTOMATIC Discharge Diagnosis: 3rd degree heart block. Condition on Discharge: Good Activity: Resume your previous activity Activity Comment: No lifting left arm above shoulder or behind neck for 6 weeks Lifting: No more than 10 pounds Bathing: Keep incision dry Bathing Comment: Keep wound dry and steri-strip intact until f/u next week Driving/Machine Use: Resume 1 day after discharge Non-emergency contact: Primary Care Provider and Sales And Production Manager Call non-emergency contact if: you have any medication questions, you have a fever, your wound has increased redness and your wound has increased drainage Follow-up/Referrals: Cony De La Torre MD [Primary Care Provider] - Diet: Heart Healthy Addtl Attending Provider Instructions: May remove outer bulky dressing in AM. Leave steri-strip intact May resume Eliquis on April 16 Pending Studies at Discharge: No Stand-Alone Forms: My [facility], Smoking Cessation Medications and DC Order Prescriptions: Continued albuterol sulfate 90 mcg/actuation HFA aerosol inhaler 2 inh Inhalation .COMPLEX PRN (Reason: cough/wheeze) Qty: 18 1RF Rx Instructions: 2 inh Inhalation 2 puffs QID prn cough and wheezing PRN; nitroglycerin 0.4 mg tablet, sublingual 0.4 mg Sublingual Q5M PRN (Reason: Chest Pain) Qty: 25 0RF nystatin 100,000 unit/gram cream 1 applic topical BID Qty: 60 2RF Rx Instructions: apply to rash bid for 1-2 weeks until clear atenolol 100 mg tablet 50 mg PO QAM Qty: 45 3RF Rx Instructions: 1/2 tablet dose escitalopram oxalate [Lexapro] 10 mg tablet 5 mg PO QAM lorazepam 1 mg tablet 1 mg PO HS Entresto 49-51 mg tablet 1 tab PO BID pantoprazole 40 mg tablet,delayed release (DR/EC) 40 mg PO QAM fluticasone propion-salmeterol [Advair Diskus] 250-50 mcg/dose Blister With Device 1 inh INHALATION BID PRN (Reason: Shortness Of Breath) Rx Instructions: order is routine but pt only takes as needed cyanocobalamin (vitamin B-12) 1,000 mcg tablet 1,000 mcg PO QAM Changed meclizine 25 mg tablet 25 mg PO Q8 PRN (Reason: dizziness) Qty: 30 0RF Held Eliquis 5 mg tablet 5 mg PO BID Hold Instructions: Resume on 04/14/23. resume evening dose on 04/14/23 No Action amlodipine 10 mg tablet 5 mg PO PM Qty: 90 3RF Discharge Orders: Discharge Order (Routine); Ordered 04/13/23 Ordered By: Adrien Oliveira Admission Data Admit Date/Time: 04/11/23 17:39 Attending Provider: Jeffrey Barron Admit Provider: Carlos Lema Primary Care Provider: Cony De La Torre Other Providers: Adrien Oliveira Other Interventions: Discharge Summary Assessment (RN) Last Done: 04/13/23 16:12 Coding Level of Care Code 94636 INP/OBS DISCH >30 MIN Diagnoses Third degree heart block I44.2 A-fib I48.91 Chronic obstructive pulmonary disease J44.9 Coronary artery disease I25.10 GERD (gastroesophageal reflux disease) K21.9 Hx of CABG Z95.1 Hypothyroidism E03.9 Hypertension I10 Paroxysmal atrial fibrillation I48.0
--- NOTE | 2023-04-13 16:13 | XRay Report ---
XR chest 2V PA/lateral CLINICAL HISTORY: Pacemaker insertion. Evaluate for pneumothorax. COMPARISON STUDY: Chest radiograph April 11, 2023. FINDINGS: There is no pneumothorax following placement of a dual-lead left subclavian pacemaker. Card iomegaly is unchanged. There is no evidence for pulmonary edema. There is no pleural effusion. No air space opacities are present. There are median sternotomy wires and mediastinal surgical clips. IMPRESSION: No pneumothorax following placement of a dual-lead left subclavian pacemaker. ACT 112: Negative or not required by law. Electronically signed by: Zechariah Ngo M.D. 04/13/2023 4:11 PM
--- NOTE | 2023-04-14 09:55 | Coding Query ---
To promote full compliance with coding requirements relating to patient care, provider participation is requested in all cases of automation driver uncertainty. Please assist us with the question(s) below: Coding Question(s): The diagnosis below was documented in the 04/12 Cardiology Consultation and on the 04/13 Electrophysiology Procedure report, then subsequently fell off all further documentation. Please indicate if it is still a possible diagnosis or ruled out. Physician's Response(s): VENTRICULAR ASYSTOLE (documented on the 04/12 Cardiology Consultation and on the 04/13 Electrophysiology Procedure report) ( x ) Diagnosed and POA ( ) Diagnosed and not POA ( ) Ruled out ( ) Other (please specify) MTDD
== END 2023-04-13 17:16 | disposition home or self-care (01) | DRG 242 ==
LOC: ED 12:34 → 2S 17:39 → SUATTDRO 17:39 → 2S 18:12
DX: Z91.013 Allergy to seafood; Z95.5 Presence of coronary angioplasty implant and graft; J44.9 Chronic obstructive pulmonary disease, unspecified; Z82.49 Family history of ischemic heart disease and other diseases of the circulatory system; I11.0 Hypertensive heart disease with heart failure; I24.8 Other forms of acute ischemic heart disease; I48.0 Paroxysmal atrial fibrillation; Z77.22 Contact with and (suspected) exposure to environmental tobacco smoke (acute) (chronic); I34.0 Nonrheumatic mitral (valve) insufficiency; I46.2 Cardiac arrest due to underlying cardiac condition; Z88.2 Allergy status to sulfonamides; K21.9 Gastro-esophageal reflux disease without esophagitis; I49.5 Sick sinus syndrome; Z95.1 Presence of aortocoronary bypass graft; Z79.899 Other long term (current) drug therapy; I44.2 Atrioventricular block, complete; Z79.01 Long term (current) use of anticoagulants; Z88.1 Allergy status to other antibiotic agents; F41.9 Anxiety disorder, unspecified; F32.A Depression, unspecified; I25.10 Atherosclerotic heart disease of native coronary artery without angina pectoris; Z88.8 Allergy status to other drugs, medicaments and biological substances; I50.30 Unspecified diastolic (congestive) heart failure